=== PATIENT | female | born 1950 | race Caucasian/White ===

== ENCOUNTER → 2018-04-20 07:50 | Outpatient (CLI) | payer MEDICARE, OTHER, SELFPAY ==
--- NOTE | 2018-04-20 | DI.MRI.S_ITS ---
PROCEDURE: MR LUMBAR SPINE WO CON INDICATIONS: SPINAL STENOSIS OF LUMBAR REGION TECHNIQUE: Noncontrast sagittal T1 spin echo and T2 fast echo, sagittal STIR, axial T1 and T2 fast spin echo through the lumbar spine. In cases with scoliosis, additional coronal T2 fast spin echo may be performed. COMPARISON: [facility], MR, L-SPINE WITHOUT CONTRAST, 10/19/2011, 18:33. [facility], MR, L-SPINE WITHOUT CONTRAST, 12/08/2016, 7:06. FINDINGS: Image quality: Excellent. Alignment and Curvature: There is grade 1 retrolisthesis of L4 on L5. Bone Marrow: Marrow is of normal overall signal. There is chronic moderate loss of vertebral body height at L5 without marrow edema, which may be congenital. Spinal Cord: Conus medullaris terminates at the L1-L2 level. Visualized cord demonstrates normal signal and size. Paraspinous Soft Tissues: No paravertebral masses. T12-L1: Preserved disc height and disc signal. There is mild posterior disc bulge. The central canal is patent. No foraminal stenosis. L1-L2: Preserved disc height and disc signal. There is broad posterior disc bulge and disc osteophyte complex. Mild bilateral facet arthropathy and hypertrophy of ligamentum flavum. The central canal is mildly narrowed, which is increased compared to the last exam. No foraminal stenosis. L2-L3: Mild loss of disc height and moderate disc desiccation. There is broad posterior disc bulge and disc osteophyte complex. Moderate bilateral facet arthropathy and severe hypertrophy of ligamentum flavum. The central canal is severely narrowed. Moderate right and mild left foraminal stenosis. There is no significant change from the last exam. L3-L4: Mild loss of disc height and moderate disc desiccation. There is broad posterior disc bulge and disc osteophyte complex. Moderate bilateral facet arthropathy and severe hypertrophy of ligamentum flavum. The central canal is severely narrowed but unchanged from the last exam. Moderate bilateral foraminal stenosis, slightly increased. L4-L5: Moderate loss of disc height and disc desiccation. There is diffuse posterior disc bulge and disc osteophyte complex. Moderate left and mild right facet arthropathy. Moderate hypertrophy of ligamentum flavum. The central canal is severely narrowed but unchanged from the last exam. Severe left and moderate right foraminal stenosis, unchanged. L5-S1: Preserved disc height. Mild disc desiccation. There is mild diffuse posterior disc bulge. Moderate bilateral facet arthropathy. The central canal is patent. Mild bilateral foraminal stenosis, unchanged. IMPRESSION: 1. Multilevel degenerative disc disease and facet arthropathy as described. 2. Severe central canal stenosis at L2-L3, L3-L4 and L4-L5. 3. Multilevel foraminal stenosis as described. Dictated by: Stephie Valdez M.D. on 04/20/2018 at 8:43 Approved by: Stephie Valdez M.D. on 04/20/2018 at 9:04
== END ==
PROVIDERS: Family Provider Family Medicine; PCP Family Medicine; Visit Provider Physical Medicine & Rehabilitation Pain Medicine
DX: M48.061 Spinal stenosis, lumbar region without neurogenic claudication (principal); M51.36 Other intervertebral disc degeneration, lumbar region; M47.816 Spondylosis without myelopathy or radiculopathy, lumbar region
CPT/HCPCS: 72148

== ENCOUNTER → 2018-08-01 12:29 | Outpatient (CLI) | payer MEDICARE, OTHER, SELFPAY ==
--- NOTE | 2018-08-01 | DI.ECHO.S_ITS ---
[facility] +---------+ : : [address] [place] : : : : [id number] : : : : Phone: [phone] Echocardiogram Report + + :Name: WHITLEY MOISE Study Date: 08/01/2018 Height: 65 in : :[facility] Exam Location: [facility] Weight: 284 lb : : Gender: Female BSA: 2.3 m2 : :: 1950 Age: 68 yrs BP: 130/80 mmHg: :Reason For Study: SOB/ MERRITT : :Ordering Physician: Dr. Jerome : :[place] Performed By: iJll Page : + + Interpretation Summary Left ventricular systolic function is normal with the ejection fraction visually estimated to be 65-70% without focal wall motion abnormalities although there is a mild dyssynchronous contraction pattern, consistent with a conduction abnormality. Left ventricular wall thickness is borderline increased. The right ventricle is normal in size and function. The right ventricular systolic pressure is estimated to be at least 37 mmHg based on an estimated right atrial pressure of 3 mm Hg. Both atria are normal in size. There is mild aortic regurgitation but no other significant valvular heart disease. The ascending aorta is mildly enlarged. The patient was in sinus tachycardia with heart rates between 100-113 bpm during the exam. Procedure: A two-dimensional transthoracic echocardiogram with color flow and Doppler was performed. The study quality was technically adequate. There is no prior echocardiogram noted for this patient. The patient was in sinus tachycardia with heart rates between 100-113 bpm during the exam. The patient had occasional PVCs during the exam. Left Ventricle: The left ventricle is grossly normal size. Left ventricular wall thickness is borderline increased. Left ventricular systolic function is normal without focal wall motion abnormalities. The ejection fraction is estimated to be 65-70%. There is a mild dyssynchronous contraction pattern, consistent with a conduction abnormality. Diastolic function could not be accurately assessed due to tachycardia. Right Ventricle: The right ventricle is normal in size and function. Atria: Both atria are normal in size. There is no Doppler evidence for an interatrial shunt. Mitral Valve: The mitral valve leaflets are slightly calcified. There is trace mitral regurgitation. Aortic Valve: The aortic valve is slightly calcified. The aortic valve opens well. There is mild aortic regurgitation. Tricuspid Valve: The tricuspid valve is normal in structure and function. There is trace tricuspid regurgitation. The right ventricular systolic pressure is estimated to be at least 37 mmHg based on an estimated right atrial pressure of 3 mm Hg. Pulmonic Valve: The pulmonic valve is not well visualized. There is a trace or physiologic amount of pulmonic regurgitation. There is no other significant valvular heart disease. Great Vessels: The aortic root is normal size. The ascending aorta is mildly enlarged. The pulmonary artery is not well visualized, but is probably normal size. The IVC is of normal diameter and collapses greater than 50% with a sniff. This suggests a low right atrial pressure of 3 mm Hg. Pericardium/ Pleura There is no pericardial effusion. There is no pleural effusion. MMode/2D Measurements & Calculations LVIDd: 4.0 cm LVOT diam: 2.1 cm LVIDs: 2.3 cm Ao root diam: 3.1 cm FS: 43.0 % asc Aorta Diam: 3.7 cm IVSd: 1.2 cm Ao Arch Diam (distal): 2.8 cm LVPWd: 0.84 cm LV shultz. diameter/BSA (cm/m^2): 1.8 LV sys. diameter/BSA (cm/m^2): 1.00 LA A2 area: 19.9 cm2 RA long axis: 5.0 cm LA A4 area: 20.3 cm2 RA area: 16.7 cm2 LA length (vol): 5.8 cm RA vol: 47.6 ml LA vol: 59.1 ml RA : 20.7 ml/m2 LA vol index: 25.7 ml/m2 IVC diam: 1.8 cm RVD1 (basal): 3.7 cm TAPSE: 2.0 cm Doppler Measurements & Calculations Ao V2 max: 176.1 cm/sec LVOT Max Jerad: 110.3 cm/sec Ao V2 mean: 112.8 cm/sec LV V1 max P.9 mmHg Ao max P.4 mmHg LV V1 VTI: 17.5 cm Ao mean P.9 mmHg CLEMENTE(I,D): 2.4 cm2 Ao V2 VTI: 24.2 cm CLEMENTE(V,D): 2.1 cm2 sev ratio: 0.72 CLEMENTE indexed to BSA (cm^2/m^2): 1.0 AI P1/2t: 402.0 msec AI dec slope: 309.4 cm/sec2 MV E max jerad: 63.2 cm/sec TR max jerad: 289.9 cm/sec MV A max jerad: 89.1 cm/sec TR max P.6 mmHg MV E/A: 0.71 PA V2 max: 107.0 cm/sec MV dec time: 0.13 sec PA V2 mean: 72.4 cm/sec MV P1/2t: 39.1 msec PA mean P.4 mmHg PA Accel Time: 0.07 sec MV P1/2t max jerad: 63.3 cm/sec MVA(P1/2t): 5.6 cm2 Reading Physician:JIM
--- NOTE | 2018-08-01 | DI.RAD.S_ITS ---
PROCEDURE: XR CHEST 2V INDICATIONS: SOB/Dyspnea on exertion TECHNIQUE: 2 views of the chest were acquired. COMPARISON: None. FINDINGS: Surgical changes and devices: None. Lungs and pleura: No pleural effusions or pneumothorax. No acute consolidation. Scattered subsegmental scarring/atelectasis Mediastinum: Mediastinal contours are normal. Heart size is normal. Bones and chest wall: No suspicious bony abnormalities. Soft tissues appear unremarkable. IMPRESSION: Scattered atelectasis. No acute consolidation. Dictated by: Jose Jurado M.D. on 08/01/2018 at 14:38 Approved by: Jose Jurado M.D. on 08/01/2018 at 14:39
== END ==
PROVIDERS: PCP Family Medicine; Visit Provider Family Medicine
DX: I35.1 Nonrheumatic aortic (valve) insufficiency (principal); J98.11 Atelectasis; R06.02 Shortness of breath; R06.09 Other forms of dyspnea; R00.0 Tachycardia, unspecified
CPT/HCPCS: 71046; 93306

== ENCOUNTER → 2019-01-22 16:02 | Outpatient (CLI) | payer MEDICARE, OTHER, SELFPAY ==
--- NOTE | 2019-01-22 | DI.MRI.S_ITS ---
PROCEDURE: MR CERVICAL SPINE WO CON INDICATIONS: Bilateral hand and arm pain TECHNIQUE: Noncontrast sagittal T1 spin echo and T2 fast spin echo, sagittal STIR, foraminal oblique sagittal T2 fast spin echo, and axial gradient echo or T2 fast spin echo through the cervical spine. COMPARISON: None. FINDINGS: Image quality: This examination is limited by involuntary motion artifact. Alignment and Curvature: There is normal bony alignment. Bone Marrow: Marrow demonstrates normal overall signal. Spinal Cord: Visualized spinal cord has normal size and signal. No cerebellar tonsillar herniation. Paraspinous Soft Tissues: No paravertebral masses. Prevertebral soft tissues are normal in thickness. C2-C3: The disc height is well-preserved. Loss of disc signal is seen at this level. A mild degree of generalized disc osteophyte complex is seen. There is mild right-sided and moderate left-sided facet hypertrophy seen. There is moderate left-sided and mild right-sided neural foraminal narrowing seen. Mild central canal narrowing is seen. C3-C4: The disc height is well-preserved. Loss of disc signal is seen at this level. A mild degree of generalized disc osteophyte complex is seen. Moderate facet joint hypertrophy is seen. There is moderate to severe bilateral neural foraminal narrowing seen. [id number] central canal narrowing is seen. C4-C5: The disc height is well-preserved. Loss of disc signal is seen at this level. A mild degree of generalized disc osteophyte complex is seen. There is moderate to prominent right-sided and mild left-sided facet hypertrophy seen. There is moderate to severe right-sided and moderate left-sided neural foraminal narrowing seen. Mild central canal narrowing is seen. C5-C6: The disc height is well-preserved. Loss of disc signal is seen at this level. Moderate generalized disc osteophyte complex is seen. Moderate facet joint hypertrophy is seen. There is moderate to severe bilateral neural foraminal narrowing seen. Moderate central canal narrowing is seen. C6-C7: The disc height is well-preserved. Loss of disc signal is seen at this level. A mild degree of generalized disc osteophyte complex is seen. There is at least moderate bilateral neural foraminal narrowing seen. Zatr-[id number] central canal narrowing is seen. C7-T1: Moderate loss of disc height is seen. Loss of disc signal is seen. Mild to moderate disc osteophyte complex is seen. Minimal to mild bilateral neural foraminal narrowing is seen. The central canal is widely patent. IMPRESSION: Multiple levels of cervical spine degenerative change are seen, which are most prominent at C5-C6, where there is moderate to severe bilateral neural foraminal narrowing and moderate central canal narrowing. Dictated by: Rubin Pappas M.D. on 01/22/2019 at 17:52 Approved by: Rubin Pappas M.D. on 01/22/2019 at 17:56
== END ==
PROVIDERS: Family Provider Family Medicine; PCP Family Medicine; Visit Provider Physical Medicine & Rehabilitation Pain Medicine
DX: M54.2 Cervicalgia (principal); M79.602 Pain in left arm; M79.601 Pain in right arm; M79.642 Pain in left hand; M79.641 Pain in right hand; M47.812 Spondylosis without myelopathy or radiculopathy, cervical region; M48.02 Spinal stenosis, cervical region
CPT/HCPCS: 72141

== ENCOUNTER 2021-05-01 17:05 | Emergency (ER) | payer MEDICARE, OTHER, SELFPAY ==
[2021-05-01 17:27] VITALS: BP 154/91; PULSE 69; RESP 18; TEMP 36.8; O2SAT 98; BMI 48.1
[2021-05-01 18:02] LABS: COVID19 -Nasal RAPID POSITIVE (Negative)
--- NOTE | 2021-05-01 18:11 | PC.NURSE ---
Nasal congestion sinus symptoms and cough x 5 days
--- NOTE | 2021-05-01 18:41 | ED.RECABL ---
HPI - Recheck/Abnormal Lab/Rx General Chief Complaint: Recheck/Abnormal Lab/Rx Stated Complaint: Covid exposure, wants test Time Seen by Provider: 05/01/21 17:19 Source: patient Mode of arrival: Ambulatory History of Present Illness HPI narrative: Patient is a 70-year-old female currently COVID vaccinated his history of myasthenia gravis, type 2 diabetes, hypothyroid, hypertension presenting today with symptoms concerning for COVID. She has had head congestion ongoing for the last 5-6 days. She is currently in a room with her friend who is also COVID positive. No difficulty breathing. Oxygen level is well above normal limits. Related Data Home Medications Medication Instructions Recorded Confirmed [RED YEAST RICE] 1 tab PO QDAY #0 06/28/16 calcium carbonate 500 mg calcium 1 tab PO #0 tab 06/28/16 (1,250 mg) tablet cholecalciferol (vitamin D3) 25 1,000 unit PO QDAY #0 tab 06/28/16 mcg (1,000 unit) tablet (Vitamin D3) glipizide 5 mg tablet 0.5 - 1 tab PO TIDAC #0 06/28/16 lecithin, soy 400 mg capsule 400 mg PO QDAY #0 06/28/16 levothyroxine 125 mcg tablet 125 mcg PO QDAY #0 tab 06/28/16 (Synthroid) metformin 500 mg tablet,extended 500 mg PO BID #0 06/28/16 release 24 hr (Glucophage XR) oxybutynin chloride 5 mg tablet 5 mg PO TID #0 06/28/16 venlafaxine 150 mg 150 mg PO QDAY #0 06/28/16 capsule,extended release 24 hr (Effexor XR) vitamin B complex (B 1 tab PO QDAY #0 tab 06/28/16 Complex-Vitamin B12) ibuprofen 200 mg tablet 600 mg PO BIDP PRN #0 07/12/16 losartan 50 mg-hydrochlorothiazide 1 tab PO BID #0 01/10/17 12.5 mg tablet Previous Rx's Medication Instructions Recorded aspirin 81 mg tablet,delayed 81 mg PO BID #60 tab 01/25/17 release hydromorphone 2 mg tablet 1 tab PO Q4HP PRN #20 tab 01/25/17 hydroxyzine pamoate 25 mg capsule 25 - 50 mg PO Q4HP PRN #60 cap 01/25/17 oxycodone 5 mg tablet 5 - 10 mg PO Q3HP PRN #60 tab 01/25/17 Allergies Allergy/AdvReac Type Severity Reaction Status Date / Time No Known Drug Allergies Allergy Verified 05/01/21 18:09 Review of Systems Review of Systems Narrative: GENERAL: Denies chills, fatigue, malaise, fever, sweats, travel HEENT: Denies sinus pain, ear pain, sore throat, difficulty swallowing, neck pain RESPIRATORY: See HPI CARDIOVASCULAR: Denies chest pain, palpitations, orthopnea, edema GASTROINTESTINAL: Denies nausea, vomiting, abdominal pain, diarrhea, constipation, melena. : Denies dysuria, frequency, incontinence, hematuria, urinary retention, flank pain. MUSCULOSKELETAL: Denies weakness, joint pain, or bony pain SKIN: No rash, no erythema, no pruritus NEUROLOGIC: Denies weakness, dizziness, headache, numbness, change in speech, confusion PSYCHIATRIC: No concerning psychosocial issues. 12 point review of systems is negative except for those stated above and HPI Patient History Social History Smoking Status: Never smoker Smoking Status: Never smoker alcohol intake frequency: other Substance Use Type: does not use Exam Initial Vital Signs Initial Vital Signs: Vital Signs Temperature 98.2 F 05/01/21 17:27 Pulse Rate 69 05/01/21 17:27 Respiratory Rate 18 05/01/21 17:27 Blood Pressure 154/91 H 05/01/21 17:27 Pulse Oximetry 98 05/01/21 17:27 GENERAL: Alert 70-year-old female appears in no acute distress HEENT: Head atraumatic,EOMI, pupils reactive, face symmetric, moist mucous membranes CARDIOVASCULAR: Regular rate and rhythm without murmurs, rubs or gallops. RESPIRATORY: Breath sounds equal bilaterally, no wheezes rales or rhonchi. ABDOMEN: Soft, nontender. Normoactive bowel sounds all 4 quadrants. No guarding or rebound. EXTREMITIES: Normal range of motion, no clubbing or edema. Neurovascularly intact NEUROLOGICAL: Alert and oriented x4.Normal gait and speech. SKIN: Warm, dry, no laceration, no petechiae, no rashes or lesions. Course Orders Ordered: ED Orders 05/01/21 17:25 COVID19 -Nasal swab/Pre-Proc Stat Vital Signs Vital signs: Vital Signs - 8 hr 05/01/21 17:27 Temperature 98.2 F Pulse Rate 69 Respiratory Rate 18 Blood Pressure 154/91 H Pulse Oximetry 98 MDM - Recheck/Abnormal Lab/Rx Lab Data Labs: Lab Results 05/01/21 Range/Units 17:25 SARS-CoV-2 (PCR) Positive H (Negative) MDM Narrative Medical decision making narrative: Discussed with patient monitoring COVID at home. She is accident aided so I do not suspect a severe infection however she does have multiple risk factors and comorbidities. Patient understands is what to do at home and when to return to the emergency department. Discharge Plan Departure Patient Disposition: Home Clinical Impression: COVID-19 Instructions: DI for COVID-19 (Suspected or Confirmed ) Activity Restrictions/Additional Instructions: * if you have not yet been vaccinated is still recommended and encouraged that you do so once your infection has passed At home: -Monitor oxygen with pulse oximeter. -Wash hands frequently. -Stay isolated at home please follow the isolation instructions below. -Increase fluid intake. -you may take Tylenol as directed if needed for pain or fever Emergency warning signs for COVID-19: Return to ER if these are present - Difficulty breathing or shortness of breath, oxygen less than 90% - Persistent pain or pressure in the chest - New confusion or inability to arouse - Bluish lips or face CDC Guidelines for home isolation: - Stay away from others - Limit contact with pets and animals: If you must care for a pet, wash your hands before and after interacting with them - Wear a mask while in public all places - Cover your mouth and nose with a tissue when you cough or sneeze. Dispose of tissues in a lined trash can and wash your hands immediately with soap and water for at least 20 seconds. If soap and water are not available, clean hands with alcohol-based hand instrument assembler that contains at least 60% alcohol. - Clean your hands often with soap and water for at least 20 seconds - Avoid touching your eyes, nose and mouth with unwashed hands - Do not share dishes, drinking glasses, cups, eating utensils, towels, or bedding with other people in your home. After using these items, wash them thoroughly with soap and water or put in the grease machine worker. - Clean high-touch surfaces in your isolation area (?sick room? and bathroom) every day; let a caregiver clean and disinfect high-touch surfaces in other areas of the home. Clean the area or item with soap and water or another detergent if it is dirty. Then, use a household disinfectant. Prescriptions: No Action metformin [Glucophage XR] 500 MG tablet extended release 24 hr 500 mg PO BID Qty: 0 RF: 0 levothyroxine [Synthroid] 125 MCG tablet 125 mcg PO QDAY Qty: 0 RF: 0 glipizide 5 MG tablet 0.5 - 1 tab PO TIDAC Qty: 0 RF: 0 venlafaxine [Effexor XR] 150 MG capsule,extended release 24hr 150 mg PO QDAY Qty: 0 RF: 0 oxybutynin chloride 5 MG tablet 5 mg PO TID Qty: 0 RF: 0 vitamin B complex [B Complex-Vitamin B12] 1 EACH tablet 1 tab PO QDAY Qty: 0 RF: 0 cholecalciferol (vitamin D3) [Vitamin D3] 1,000 UNIT tablet 1,000 unit PO QDAY Qty: 0 RF: 0 lecithin, soy 400 MG capsule 400 mg PO QDAY Qty: 0 RF: 0 calcium carbonate 500 MG tablet 1 tab PO Qty: 0 RF: 0 [RED YEAST RICE] 1 tab PO QDAY Qty: 0 RF: 0 ibuprofen 200 MG tablet 600 mg PO BIDP PRNQty: 0 RF: 0 losartan-hydrochlorothiazide 50 MG/12.5 MG tablet 1 tab PO BID Qty: 0 RF: 0 aspirin 81 MG tablet,delayed release (DR/EC) 81 mg PO BID Qty: 60 RF: 1 hydromorphone 2 MG tablet 1 tab PO Q4HP PRNQty: 20 RF: 0 hydroxyzine pamoate 25 MG capsule 25 - 50 mg PO Q4HP PRNQty: 60 RF: 1 oxycodone 5 MG tablet 5 - 10 mg PO Q3HP PRNQty: 60 RF: 0
== END 2021-05-01 20:03 | disposition home or self-care (01) ==
LOC: ED 19:04
PROVIDERS: Emergency Medicine; Emergency Provider Emergency Medicine
DX: U07.1 COVID-19 (principal)
CPT/HCPCS: 87635; 99281; 99282; C9803

== ENCOUNTER 2021-05-06 22:33 | Observation (INO) | payer MEDICARE, OTHER, SELFPAY ==
[2021-05-06 22:46] VITALS: BP 109/60; PULSE 71; RESP 20; TEMP 36.6; O2SAT 98; BMI 48.2
--- NOTE | 2021-05-06 22:58 | DI.RAD.S_ITS ---
PROCEDURE: XR CHEST 1V INDICATIONS: covid TECHNIQUE: One view of the chest was acquired. COMPARISON: [facility], CR, XR CHEST 2V, 08/01/2018, 12:34. FINDINGS: Surgical changes and devices: None. Lungs and pleura: Mild infiltrates bilaterally compatible with pneumonia. No pleural effusions or pneumothorax. Mediastinum: Mediastinal contours appear normal. Heart size is normal. Bones and chest wall: No suspicious bony lesions. Overlying soft tissues appear unremarkable. IMPRESSION: Mild infiltrates bilaterally compatible with pneumonia. No significant discrepancy with the unstacker radiology preliminary report. Dictated by: Stephie Valdez M.D. on 05/07/2021 at 7:22 Approved by: Stephie Valdez M.D. on 05/07/2021 at 7:23
[2021-05-06 23:17] LABS: Add Manual Diff / Slide Review NO; Basophils Absolute Auto 0 /uL (0-100); Basophils Percent Auto 0.2 % (0-2); Eosinophils Absolute Auto 0 /uL (0-450); Eosinophils Percent Auto 0.4 % (2-4); Lymphocytes Absolute Auto 200 /uL (1100-4500); Lymphocytes Percent Auto 3.7 % (25-40); Mean Corpuscular HGB Conc 34.4 % (30-36); Mean Corpuscular Hemoglobin 29.6 PG (26-34); Mean Corpuscular Volume 86.1 fL (80-100); Monocytes Absolute Auto 500 /uL (0-900); Neutrophils Absolute Auto 5200 /uL (1500-7000); Neutrophils Percent Auto 86.7 % (50-75); Platelet Count 209 X10^3/uL (150-400); Red Blood Cell Count 3.72 X10^6/uL (4.0-5.2); Red Cell Distribution Width 15.8 % (11.6-14.8)
[2021-05-06 23:33] VITALS: PULSE 73; RESP 24; O2SAT 100
[2021-05-06 23:33] LABS: D Dimer 842 ng/mL (<230)
[2021-05-06 23:34] LABS: Alanine Aminotransferase 36 IU/L (<35); Albumin 3.3 g/dL (3.5-5.0); Albumin Globulin Ratio 1.1 (1.0-2.8); Alkaline Phosphatase 56 U/L (38-126); Aspartate Aminotransferase 82 IU/L (14-36); BUN Creatinine Ratio 17.5 (6-22); Bilirubin Total 0.8 mg/dL (0.2-1.3); Blood Urea Nitrogen 28 mg/dL (7-17); Calcium 8.2 mg/dL (8.4-10.2); Carbon Dioxide 27 mmol/L (22-32); Chloride 94 mmol/L (98-107); Creatine Kinase 556 U/L (30-135); Estimated Glomerular Filt Rate 31.8 mL/min (>60); Glucose 111 mg/dL (80-110); HEMOLYSIS < 15 (0-50); Lactate (Lactic Acid) 3.9 mmol/L (0.7-2.1); Potassium 2.8 mmol/L (3.4-5.1); Sodium 129 mmol/L (137-145); Total Protein 6.3 g/dL (6.3-8.2)
[2021-05-06 23:37] VITALS: BP 101/55; PULSE 71; RESP 20; O2SAT 99
[2021-05-06 23:38] LABS: COVID19 -Nasal RAPID POSITIVE (Negative)
--- NOTE | 2021-05-06 23:45 | ED_ITS ---
HPI - SOB/Dyspnea General Chief Complaint: Shortness of Breath/Dyspnea Stated Complaint: Covid+ SOB Time Seen by Provider: 05/06/21 22:57 Source: patient and family Mode of arrival: EMS Limitations: no limitations History of Present Illness HPI Narrative: Patient is a 70-year-old female who is known COVID positive and vaccinated history of hypertension diabetes type 2 my seen a gravis on immunosuppressants, hyperlipidemia and hypothyroidism. She was diagnosed with COVID on 05/01/2021 her sister was admitted at that time. She has been doing well until today when she has had worsening fatigue. She has been checking her oxygen regularly. She says it goes down to 80 89% she takes some deep breaths it does go up to 94% but then quickly goes back down. She overall just does not feel well. She was actually hypotensive for EMS she received at least 500 cc bolus blood pressure is somewhat in removed. Related Data Home Medications Medication Instructions Recorded Confirmed [RED YEAST RICE] 1 tab PO QDAY #0 06/28/16 calcium carbonate 500 mg calcium 1 tab PO #0 tab 06/28/16 (1,250 mg) tablet cholecalciferol (vitamin D3) 25 1,000 unit PO QDAY #0 tab 06/28/16 mcg (1,000 unit) tablet (Vitamin D3) glipizide 5 mg tablet 5 tab PO TIDAC #0 06/28/16 05/07/21 lecithin, soy 400 mg capsule 400 mg PO QDAY #0 06/28/16 05/07/21 levothyroxine 125 mcg tablet 125 mcg PO QDAY #0 tab 06/28/16 05/07/21 (Synthroid) metformin 500 mg tablet,extended 500 mg PO BID #0 06/28/16 05/07/21 release 24 hr (Glucophage XR) oxybutynin chloride 5 mg tablet 5 mg PO TID #0 06/28/16 venlafaxine 150 mg 150 mg PO Q OTHER DAY #0 06/28/16 05/07/21 capsule,extended release 24 hr (Effexor XR) vitamin B complex (B 1 tab PO QDAY #0 tab 06/28/16 05/07/21 Complex-Vitamin B12) ibuprofen 200 mg tablet 600 mg PO BIDP PRN #0 07/12/16 azathioprine 75 mg tablet 150 mg PO DAILY 05/07/21 05/07/21 hydrochlorothiazide 25 mg tablet 25 mg PO DAILY PRN 05/07/21 05/07/21 lactobacillus combination no.8 3 1 cell PO 2XW 05/07/21 05/07/21 billion cell capsule losartan 50 mg tablet 50 mg PO BID 05/07/21 05/07/21 metoprolol tartrate 25 mg tablet 25 mg PO DAILY 05/07/21 05/07/21 multivitamin with minerals (Daily 1 tab PO 2XW 05/07/21 05/07/21 Multivitamin-Minerals) potassium chloride 8 mEq 8 meq PO DAILY 05/07/21 05/07/21 capsule,extended release prednisone 10 mg tablet 10 mg PO DAILY PRN 05/07/21 05/07/21 pyridostigmine bromide 30 mg tablet 15 mg PO BID 05/07/21 05/07/21 Previous Rx's Medication Instructions Recorded aspirin 81 mg tablet,delayed 81 mg PO BID #60 tab 01/25/17 release hydromorphone 2 mg tablet 1 tab PO Q4HP PRN #20 tab 01/25/17 hydroxyzine pamoate 25 mg capsule 25 - 50 mg PO Q4HP PRN #60 cap 01/25/17 oxycodone 5 mg tablet 5 - 10 mg PO Q3HP PRN #60 tab 01/25/17 Allergies Allergy/AdvReac Type Severity Reaction Status Date / Time No Known Drug Allergies Allergy Verified 05/01/21 18:09 Review of Systems Review of Systems ROS Unobtainable: All systems reviewed & are unremarkable except as noted in HPI and below Constitutional Constitutional: Reports chills, Reports fatigue and Reports fever(s) ENT Ears, Nose, Mouth, and Throat: Denies dizziness and Denies sinus pain Cardiovascular Cardiovascular: Denies chest pain and Denies irregular heart rhythm Respiratory Respiratory: Reports as per HPI Gastrointestinal Gastrointestinal: Denies abdominal pain, Denies nausea and Denies vomiting Musculoskeletal Musculoskeletal: Denies back pain and Reports myalgias Integumentary/Breasts Skin/Breast: Denies rash and Denies sores Neurologic Neurologic: Denies dizziness Endocrine Endocrine: Reports fatigue Patient History Medical History Diabetes type 2, controlled Essential hypertension HLD (hyperlipidemia) Hypothyroidism Morbid obesity with BMI of 45.0-49.9, adult Myasthenia gravis Surgical History S/P total knee arthroplasty Family History Mother Diabetes mellitus Father Testicular cancer Social History household members: none Smoking Status: Never smoker Smoking Status: Never smoker alcohol intake frequency: other Substance Use Type: does not use Exam Initial Vital Signs Initial Vital Signs: Vital Signs Temperature 97.8 F 05/06/21 22:46 Pulse Rate 71 05/06/21 22:46 Respiratory Rate 20 05/06/21 22:46 Blood Pressure 109/60 05/06/21 22:46 Pulse Oximetry 98 05/06/21 22:46 GENERAL: Alert 70-year-old female appears to not feel well and in no acute distress. HEENT: Head atraumatic,EOMI, pupils reactive, face symmetric, moist mucous membranes CARDIOVASCULAR: Regular rate and rhythm without murmurs, rubs or gallops. RESPIRATORY: Coarse breath sounds bilateral bases speaks in full sentences without difficulty on 4 L nasal cannula ABDOMEN: Soft, nontender. Normoactive bowel sounds all 4 quadrants. No guarding or rebound. EXTREMITIES: Normal range of motion, no clubbing or edema. Neurovascularly intact NEUROLOGICAL: Alert and oriented x4.Normal gait and speech. SKIN: Warm, dry, no laceration, no petechiae, no rashes or lesions. Course Orders Ordered: ED Orders 05/06/21 22:58 XR chest 1V Stat EKG-12 Lead Stat 05/06/21 23:00 COVID19 -Nasal swab/Pre-Proc Stat 05/06/21 23:05 Blood Culture Stat C-Reactive Protein Quant Stat Complete Blood Count AUTO DIFF Stat Comprehensive Metabolic Panel Stat D Dimer Stat Ferritin Stat Lactate (Lactic Acid) Stat Lactate Dehydrogenase Stat NT-proBNP (BNP-Adult 18+) Stat Procalcitonin Stat Troponin & CK Cardiac Panel Stat Acetaminophen (Acetaminophen 325 Mg Tablet) 650 mg PO Q6HR PRN PRN Reason: Fever/Mild Pain (1-3) Azathioprine (Azathioprine 50 Mg Tablet) 150 mg PO DAILY MINE Azithromycin (Azithromycin 250 Mg Tablet) 500 mg PO DAILY MINE Dexamethasone (Dexamethasone 10 Mg/Ml Vial) 6 mg IV DAILY [facility]INE Dextrose (Dextrose 50 % In Water 25 Gm/50 Ml Syringe) 25 gm IV PRN PRN PRN Reason: Hypoglycemia Enoxaparin Sodium (Enoxaparin 40 Mg/0.4 Ml Syringe) 40 mg SUBCUT DAILY [facility] Sodium Chloride (Normal Saline 0.9%) 1,000 mls @ 150 mls/hr IV CONT [facility] Stop: 05/07/21 06:24 Last Admin: 05/07/21 03:08 Dose: Not Given Documented by: CYNTHIA Remdesivir 100 mg/ Sodium (Chloride) 250 mls @ 250 mls/hr IV DAILY [facility] Stop: 05/10/21 01:11 Insulin Human Lispro (Insulin Lispro 100 Unit/Ml 3ml Vial) 0 unit SUBCUT ACHS [facility]; Protocol Levothyroxine Sodium (Levothyroxine 125 Mcg Tablet) 125 mcg PO QACBREAK [facility] Last Admin: 05/07/21 02:37 Dose: Not Given Documented by: CYNTHIA Losartan Potassium (Losartan 50 Mg Tablet) 50 mg PO BID [facility] Metoprolol Tartrate (Metoprolol Ir 25 Mg Tablet) 25 mg PO DAILY [facility] Naloxone HCl (Naloxone 0.4 Mg/Ml Vial) 0.2 mg IV Q2MIN PRN PRN Reason: Opiate Reversal Pyridostigmine (Taylor 30 Mg Tablet) 15 mg PO BID [facility] Ondansetron HCl (Ondansetron 4 Mg/2 Ml Inj) 4 mg IV Q6HR PRN PRN Reason: Nausea And Vomiting Oxybutynin (Oxybutynin 5 Mg Tablet) 5 mg PO TID [facility] Last Admin: 05/07/21 02:37 Dose: Not Given Documented by: CYNTHIA Venlafaxine HCl (Venlafaxine Er 75 Mg Cap) 150 mg PO DAILY [facility] Last Admin: 05/07/21 02:37 Dose: Not Given Documented by: CYNTHIA Discontinued Medications Azathioprine (Azathioprine 50 Mg Tablet) 50 mg PO DAILY [facility] Dexamethasone (Dexamethasone 10 Mg/Ml Vial) 6 mg IV NOW ONE Stop: 05/06/21 23:57 Last Admin: 05/07/21 00:11 Dose: 6 mg Documented by: NEHA Remdesivir 200 mg/ Sodium (Chloride) 250 mls @ 250 mls/hr IV NOW ONE Stop: 05/06/21 23:57 Last Infusion: 05/07/21 01:56 Dose: 250 mls/hr Documented by: Admin: 05/07/21 00:34 Dose: 250 mls/hr Documented by: NEHA POTASSIUM CHLORIDE IN WATER (Potassium Cl 10 Meq/100 Ml Yola) 10 meq in 100 mls @ 100 mls/hr IV Q1H [facility]INE Stop: 05/07/21 03:44 Last Admin: 05/07/21 03:56 Dose: 100 mls/hr Documented by: Infusion: 05/07/21 03:36 Dose: 100 mls/hr Documented by: Admin: 05/07/21 02:36 Dose: 100 mls/hr Documented by: Infusion: 05/07/21 01:30 Dose: 0 mls/hr Documented by: Admin: 05/07/21 00:11 Dose: 100 mls/hr Documented by: NEHA Sodium Chloride (Normal Saline 0.9%) 1,000 mls @ 1,000 mls/hr IV BOLUS ONE Stop: 05/07/21 01:02 Last Infusion: 05/07/21 01:56 Dose: 1,000 mls/hr Documented by: Admin: 05/07/21 00:12 Dose: 1,000 mls/hr Documented by: NEHA Losartan Potassium (Losartan 25 Mg Tablet) 25 mg PO BID MINE Vital Signs Vital signs: Vital Signs - 8 hr 05/06/21 22:46 05/06/21 23:33 05/06/21 23:37 Temperature 97.8 F Pulse Rate 71 73 71 Respiratory Rate 20 24 20 Blood Pressure 109/60 101/55 L Pulse Oximetry 98 100 99 05/07/21 00:00 Temperature Pulse Rate 67 Respiratory Rate 29 H Blood Pressure 83/50 L Pulse Oximetry 98 MDM - SOB/Dyspnea Lab Data Attestation: I reviewed the patient's lab results. Result diagrams: 05/06/21 23:05 05/06/21 23:05 Labs: Lab Results 05/06/21 05/06/21 05/06/21 Range/Units 23:00 23:05 23:05 WBC (4.5-11.0) X10^3/uL RBC (4.0-5.2) X10^6/uL Hgb (12.0-16.0) g/dL Hct (36-46) % MCV (80-100) fL MCH (26-34) PG MCHC (30-36) % RDW (11.6-14.8) % Plt Count (150-400) X10^3/uL Neut % (Auto) (50-75) % Lymph % (Auto) (25-40) % Edgar % (Auto) (3-14) % Eos % (Auto) (2-4) % Baso % (Auto) (0-2) % Neut # (Auto) (9564-0317) /uL Lymph # (Auto) (9800-7723) /uL Edgar # (Auto) (0-900) /uL Eos # (Auto) (0-450) /uL Baso # (Auto) (0-100) /uL D-Dimer 842 H (<230) ng/mL Sodium (137-145) mmol/L Potassium (3.4-5.1) mmol/L Chloride (98-107) mmol/L Carbon Dioxide (22-32) mmol/L BUN (7-17) mg/dL Creatinine (0.52-1.04) mg/dL Estimated GFR (>60) mL/min BUN/Creatinine Ratio (6-22) Glucose (80-110) mg/dL Hemoglobin A1c (4.0-6.0) % Lactate (0.7-2.1) mmol/L Calcium (8.4-10.2) mg/dL Ferritin (11-264) ng/mL Total Bilirubin (0.2-1.3) mg/dL AST (14-36) IU/L ALT (<35) IU/L Alkaline Phosphatase (38-126) U/L Lactate Dehydrogenase (313-618) U/L Total Creatine Kinase (30-135) U/L CK-MB (CK-2) (<2.37) ng/mL CK-MB (CK-2) Rel Index (1.5-5.0) % Troponin I (0.01-0.034) ng/mL C-Reactive Protein (<1.0) mg/dL NT-Pro-B Natriuret Pep (<125) pg/mL Total Protein (6.3-8.2) g/dL Albumin (3.5-5.0) g/dL Globulin (1.7-4.1) g/dL Albumin/Globulin Ratio (1.0-2.8) Procalcitonin 0.31 (<0.5) ng/mL SARS-CoV-2 (PCR) Positive H (Negative) 05/06/21 05/06/21 05/06/21 Range/Units 23:05 23:05 23:05 WBC 6.0 (4.5-11.0) X10^3/uL RBC 3.72 L (4.0-5.2) X10^6/uL Hgb 11.0 L (12.0-16.0) g/dL Hct 32.0 L (36-46) % MCV 86.1 (80-100) fL MCH 29.6 (26-34) PG MCHC 34.4 (30-36) % RDW 15.8 H (11.6-14.8) % Plt Count 209 (150-400) X10^3/uL Neut % (Auto) 86.7 H (50-75) % Lymph % (Auto) 3.7 L (25-40) % Edgar % (Auto) 9.0 (3-14) % Eos % (Auto) 0.4 L (2-4) % Baso % (Auto) 0.2 (0-2) % Neut # (Auto) 5200 (7173-8393) /uL Lymph # (Auto) 200 L (0637-1580) /uL Edgar # (Auto) 500 (0-900) /uL Eos # (Auto) 0 (0-450) /uL Baso # (Auto) 0 (0-100) /uL D-Dimer (<230) ng/mL Sodium 129 L (137-145) mmol/L Potassium 2.8 L (3.4-5.1) mmol/L Chloride 94 L (98-107) mmol/L Carbon Dioxide 27 (22-32) mmol/L BUN 28 H (7-17) mg/dL Creatinine 1.60 H (0.52-1.04) mg/dL Estimated GFR 31.8 L (>60) mL/min BUN/Creatinine Ratio 17.5 (6-22) Glucose 111 H (80-110) mg/dL Hemoglobin A1c (4.0-6.0) % Lactate 3.9 H (0.7-2.1) mmol/L Calcium 8.2 L (8.4-10.2) mg/dL Ferritin 742 H (11-264) ng/mL Total Bilirubin 0.8 (0.2-1.3) mg/dL AST 82 H (14-36) IU/L ALT 36 H (<35) IU/L Alkaline Phosphatase 56 (38-126) U/L Lactate Dehydrogenase 781 H (313-618) U/L Total Creatine Kinase 556 H (30-135) U/L CK-MB (CK-2) 1.51 (<2.37) ng/mL CK-MB (CK-2) Rel Index 0.3 L (1.5-5.0) % Troponin I < 0.012 (0.01-0.034) ng/mL C-Reactive Protein 6.0 H (<1.0) mg/dL NT-Pro-B Natriuret Pep 165 H (<125) pg/mL Total Protein 6.3 (6.3-8.2) g/dL Albumin 3.3 L (3.5-5.0) g/dL Globulin 3.0 (1.7-4.1) g/dL Albumin/Globulin Ratio 1.1 (1.0-2.8) Procalcitonin (<0.5) ng/mL SARS-CoV-2 (PCR) (Negative) 05/06/21 Range/Units 23:05 WBC (4.5-11.0) X10^3/uL RBC (4.0-5.2) X10^6/uL Hgb (12.0-16.0) g/dL Hct (36-46) % MCV (80-100) fL MCH (26-34) PG MCHC (30-36) % RDW (11.6-14.8) % Plt Count (150-400) X10^3/uL Neut % (Auto) (50-75) % Lymph % (Auto) (25-40) % Edgar % (Auto) (3-14) % Eos % (Auto) (2-4) % Baso % (Auto) (0-2) % Neut # (Auto) (9658-1514) /uL Lymph # (Auto) (8216-3620) /uL Edgar # (Auto) (0-900) /uL Eos # (Auto) (0-450) /uL Baso # (Auto) (0-100) /uL D-Dimer (<230) ng/mL Sodium (137-145) mmol/L Potassium (3.4-5.1) mmol/L Chloride (98-107) mmol/L Carbon Dioxide (22-32) mmol/L BUN (7-17) mg/dL Creatinine (0.52-1.04) mg/dL Estimated GFR (>60) mL/min BUN/Creatinine Ratio (6-22) Glucose (80-110) mg/dL Hemoglobin A1c 6.3 H (4.0-6.0) % Lactate (0.7-2.1) mmol/L Calcium (8.4-10.2) mg/dL Ferritin (11-264) ng/mL Total Bilirubin (0.2-1.3) mg/dL AST (14-36) IU/L ALT (<35) IU/L Alkaline Phosphatase (38-126) U/L Lactate Dehydrogenase (313-618) U/L Total Creatine Kinase (30-135) U/L CK-MB (CK-2) (<2.37) ng/mL CK-MB (CK-2) Rel Index (1.5-5.0) % Troponin I (0.01-0.034) ng/mL C-Reactive Protein (<1.0) mg/dL NT-Pro-B Natriuret Pep (<125) pg/mL Total Protein (6.3-8.2) g/dL Albumin (3.5-5.0) g/dL Globulin (1.7-4.1) g/dL Albumin/Globulin Ratio (1.0-2.8) Procalcitonin (<0.5) ng/mL SARS-CoV-2 (PCR) (Negative) Imaging Data Chest x-ray: Radiologist's Impression: Preliminary report: Mild bronchial wall thickening with questionable faint bilateral opacity that is likely secondary given 2 history of COVID-19 ECG Data Attestation: I personally reviewed and interpreted this ECG as follows: Interpretation: Normal sinus rhythm rate 71 MA interval 136 QRS 84 QTC is [address] changes MDM Narrative Medical decision making narrative: The patient is known COVID positive immunocompromised and vaccinated.. She initially was hypotensive blood pressures in the 70s with EMS has improved with fluids here however she is requiring a 2 L could blood pressure decrease his again into the 80s. Lactic acid is elevated at 3.9. Blood pressure improved with a 2 L of fluids. The patient has severe sepsis based on hypotension and known infection. Blood pressure however improved easily with fluids she does not require is vasopressors or central line. She is requiring 4 L of oxygen she is given dexamethasone and remdesivir. She is also found to be slightly hyponatremic with a sodium of 129 the potassium is also low at 2.8. K riders been ordered. D-dimer is likely elevated due to COVID rather than pulmonary embolism. Pao BANG updated patient's symptoms test results in ED to seen evaluated p [place] accepts patient. Discharge Plan Departure Patient Disposition: Admitted As Inpatient Clinical Impression: Pneumonia due to COVID-19 virus Admit Date/Time: 05/07/21 00:03 Admit Provider: Génesis Jurado
[2021-05-06 23:46] LABS: NT-proBNP (BNP-Adult 18+) 165 pg/mL (<125); Troponin I < 0.012 ng/mL (0.01-0.034)
[2021-05-06 23:49] LABS: CKMB % Relative Index 0.3 % (1.5-5.0); Creatine Kinase MB 1.51 ng/mL (<2.37)
[2021-05-06 23:52] LABS: Lactate Dehydrogenase 781 U/L (313-618); Procalcitonin 0.31 ng/mL (<0.5)
[2021-05-07] VITALS (10 sets, daily range): BP systolic 83–132; BP diastolic 50–71; PULSE 67–86; RESP 19–82; TEMP 36.3–37; O2SAT 90–100; BMI 47.5
[2021-05-07 00:09] LABS: Ferritin 742 ng/mL (11-264)
[2021-05-07] MEDS: DEXAMETHASONE 10 MG/ML VIAL 6 MG IV ×2 (00:11→08:20)
[2021-05-07] MEDS: POTASSIUM CHLORIDE IN WATER 10 MEQ/100 ML PIGGYBACK 100 MEQ IV ×4 (00:11→05:02)
[2021-05-07] MEDS: SODIUM CHLORIDE 0.9% 1,000 ML 1000 ML IV (00:12)
[2021-05-07] MEDS: REMDESIVIR 200 MG in SODIUM CHLORIDE 0.9% 210 ML 250 ML IV (00:34)
[2021-05-07 01:11] LABS: Reflexed Lactate in 2 Hours Y
--- NOTE | 2021-05-07 01:12 | P.HP_ITS ---
History of Present Illness History of Present Illness Date Patient Seen: 05/07/21 Time Patient Seen: 00:30 Chief complaint: Covid+ SOB Narrative: Medina Mai is a 70-year-old morbidly obese female with hypertension, diabetes type 2, myasthenia gravis on immunosuppressants, hyperlipidemia and hypothyroidism presents back to the emergency department after being seen 4 days ago and having been tested positive for COVID-19 due to continuing fatigue, sweats with no fever, weakness, lightheadedness and diarrhea for the past several days. She denies actually having a fever she stated it was 97, denies nausea or vomiting, dysuria or numbing and tingling of her upper lower extremities. The patient apparently was exposed to her sister who lives with her and while the patient is vaccinated her sister's not. 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 Chest x-ray was done in the ED however it is not been read. Patient is afebrile, blood pressure 111/65, heart rate 70, respiratory rate 22, oxygen saturation 100% on a 4 L, she weighs 131.5 kg with a BMI of 48. WBC is 6.0 RBC 3.72, hemoglobin and hematocrit are 11.0 in 32 respectively platelet count is 209 she has mild lymphopenia, her D-dimer was elevated 842, sodium 129, potassium 2.8, chloride 94, bicarb 27, creatinine 0.60 which is new for her with 0 GFR of 31.8 glucose is 110, lactate 3.9, calcium 8.2, ferritin 742, AST 82, ALT 36, lactate dehydrogenase is 781, total CK is 956, CK-MB is 3%, troponin is within normal limits, C-reactive protein is 6.0, proBNP is 165 essentially normal, albumin is 2.3, and COVID-19 PCR repeated over 4 days continues to be positive Patient History Medical History Diabetes type 2, controlled Essential hypertension HLD (hyperlipidemia) Hypothyroidism Morbid obesity with BMI of 45.0-49.9, adult Myasthenia gravis Surgical History S/P total knee arthroplasty Family & Social History Family History Mother Diabetes mellitus Father Testicular cancer Safety & Behavioral: Feels Safe in Current Yes Environment Been Physically Hurt or No Threatened By a Person Tobacco & Substance use: Smoking Status Never smoker alcohol intake frequency denies Substance Use Type does not use Meds Home Medications and Allergies Home Medications Medication Instructions Recorded Confirmed Type [RED YEAST RICE] 1 tab PO QDAY #0 06/28/16 History calcium carbonate 500 mg calcium 1 tab PO #0 tab 06/28/16 History (1,250 mg) tablet cholecalciferol (vitamin D3) 25 1,000 unit PO QDAY #0 tab 06/28/16 History mcg (1,000 unit) tablet (Vitamin D3) glipizide 5 mg tablet 5 tab PO TIDAC #0 06/28/16 05/07/21 History lecithin, soy 400 mg capsule 400 mg PO QDAY #0 06/28/16 05/07/21 History levothyroxine 125 mcg tablet 125 mcg PO QDAY #0 tab 06/28/16 05/07/21 History (Synthroid) metformin 500 mg tablet,extended 500 mg PO BID #0 06/28/16 05/07/21 History release 24 hr (Glucophage XR) oxybutynin chloride 5 mg tablet 5 mg PO TID #0 06/28/16 History venlafaxine 150 mg 150 mg PO Q OTHER DAY #0 06/28/16 05/07/21 History capsule,extended release 24 hr (Effexor XR) vitamin B complex (B 1 tab PO QDAY #0 tab 06/28/16 05/07/21 History Complex-Vitamin B12) ibuprofen 200 mg tablet 600 mg PO BIDP PRN #0 07/12/16 History aspirin 81 mg tablet,delayed 81 mg PO BID #60 tab 01/25/17 Rx release hydromorphone 2 mg tablet 1 tab PO Q4HP PRN #20 tab 01/25/17 Rx hydroxyzine pamoate 25 mg capsule 25 - 50 mg PO Q4HP PRN #60 cap 01/25/17 Rx oxycodone 5 mg tablet 5 - 10 mg PO Q3HP PRN #60 tab 01/25/17 Rx azathioprine 75 mg tablet 150 mg PO DAILY 05/07/21 05/07/21 History hydrochlorothiazide 25 mg tablet 25 mg PO DAILY PRN 05/07/21 05/07/21 History lactobacillus combination no.8 3 1 cell PO 2XW 05/07/21 05/07/21 History billion cell capsule losartan 50 mg tablet 50 mg PO BID 05/07/21 05/07/21 History metoprolol tartrate 25 mg tablet 25 mg PO DAILY 05/07/21 05/07/21 History multivitamin with minerals (Daily 1 tab PO 2XW 05/07/21 05/07/21 History Multivitamin-Minerals) potassium chloride 8 mEq 8 meq PO DAILY 05/07/21 05/07/21 History capsule,extended release prednisone 10 mg tablet 10 mg PO DAILY PRN 05/07/21 05/07/21 History pyridostigmine bromide 30 mg tablet 15 mg PO BID 05/07/21 05/07/21 History Allergies Allergy/AdvReac Type Severity Reaction Status Date / Time No Known Drug Allergies Allergy Verified 05/01/21 18:09 Review of Systems Review of Systems ROS: Yes All systems reviewed with the patient and are negative except as other samson documented Exam Vital Signs (past 8 hours): - 05/06/21 22:46 Temperature 97.8 F Pulse Rate 71 Respiratory Rate 20 Blood Pressure 109/60 Pulse Oximetry 98 Oxygen Delivery Method Nasal Cannula Oxygen Flow Rate 4 Narrative Exam Narrative: Gen: Alert, oriented, morbidly obese 70 y.o. female, appears uncomfortable HEENT: normocephalic, atraumatic, conjunctiva clear, sclera non-icteric, oral mucosa pink and moist Neck: supple, full ROM, no JVD, trachea is midline Resp: Lungs CTA, non-labored breathing CV: RRR, no murmur or rubs Abd: soft, non-tender, normoactive BTs Skin: no lesions or rashes, dry and intact Neuro: Alert and oriented X 4 w/no focal deficits. Speech clear and coherent. Extremities: moves all 4 extremities, is ambulatory, negative Angélica?s sign Psyche: normal mood and affect. Objective Labs Result Diagrams: 05/06/21 23:05 05/06/21 23:05 Labs: Laboratory Results - last 24 hr 05/06/21 05/06/21 05/06/21 23:00 23:05 23:05 WBC RBC Hgb Hct MCV MCH MCHC RDW Plt Count Neut % (Auto) Lymph % (Auto) [place] % (Auto) Eos % (Auto) Baso % (Auto) Neut # (Auto) Lymph # (Auto) [place] # (Auto) Eos # (Auto) Baso # (Auto) D-Dimer 842 H Sodium Potassium Chloride Carbon Dioxide BUN Creatinine Estimated GFR BUN/Creatinine Ratio Glucose Lactate Calcium Ferritin Total Bilirubin AST ALT Alkaline Phosphatase Lactate Dehydrogenase Total Creatine Kinase CK-MB (CK-2) CK-MB (CK-2) Rel Index Troponin I C-Reactive Protein NT-Pro-B Natriuret Pep Total Protein Albumin Globulin Albumin/Globulin Ratio Procalcitonin 0.31 SARS-CoV-2 (PCR) Positive H 05/06/21 05/06/21 05/06/21 23:05 23:05 23:05 WBC 6.0 RBC 3.72 L Hgb 11.0 L Hct 32.0 L MCV 86.1 MCH 29.6 MCHC 34.4 RDW 15.8 H Plt Count 209 Neut % (Auto) 86.7 H Lymph % (Auto) 3.7 L [place] % (Auto) 9.0 Eos % (Auto) 0.4 L Baso % (Auto) 0.2 Neut # (Auto) 5200 Lymph # (Auto) 200 L [place] # (Auto) 500 Eos # (Auto) 0 Baso # (Auto) 0 D-Dimer Sodium 129 L Potassium 2.8 L Chloride 94 L Carbon Dioxide 27 BUN 28 H Creatinine 1.60 H Estimated GFR 31.8 L BUN/Creatinine Ratio 17.5 Glucose 111 H Lactate 3.9 H Calcium 8.2 L Ferritin 742 H Total Bilirubin 0.8 AST 82 H ALT 36 H Alkaline Phosphatase 56 Lactate Dehydrogenase 781 H Total Creatine Kinase 556 H CK-MB (CK-2) 1.51 CK-MB (CK-2) Rel Index 0.3 L Troponin I < 0.012 C-Reactive Protein 6.0 H NT-Pro-B Natriuret Pep 165 H Total Protein 6.3 Albumin 3.3 L Globulin 3.0 Albumin/Globulin Ratio 1.1 Procalcitonin SARS-CoV-2 (PCR) Assessment & Plan Assessment & Plan narrative: Medina Mosley is a 69 y.o. female will admitted for treatment and management of a COVID-19 pneumonia. 1. COVID-19 pneumonia, acute, present on admission * Patient was initially mildly hypoxic in the emergency department on presentation with a oxygen saturation of 98% on 3 L and is now at 100% * She was given a loading dose of remdesivir 200 mg IV x1 and dexamethasone 6 mg IV times on and will be continued at the maintenance dose of remdesivir 100 mg IV daily and the same for IV dexamethasone * RT was requested to see the patient and assess her oxygen needs 2. Acute hypokalemia, present on admission * Potassium was 2.8 and she was given IV riders in the ED * She also appears to be somewhat dry and will be given an additional L of normal saline at 150 mL/hour x1 L 3. Elevated D-dimer unknown if PE is suspected, Wells score of 4.5 * Her creatinine and GFR contour indicate contrast CT angio * If with continued or worsening respiratory impairment consider nuclear perfusi on scan * She is started initially on the enoxaparin 40 mg however given COVID status consider anticoagulation at half dose which would be 70 mg b.i.d. 4. Diabetes type 2 * A1c is 6.3 * Low-dose correctional insulin scale * Carb controlled diet with ACHS glucose checks 5. Essential hypertension, chronic * She is currently normotensive * She will be continued on losartan 50 mg p.o. b.i.d. * She is written for metoprolol however this has not been confirmed * Telemetry 6. Myasthenia gravis, chronic * Continue home doses of azathioprine 150 mg and pyridostigmine 15 mg po bid 7. Hyperlipidemia, chronic * Continue home dose of atorvastatin 40 mg p.o. at bedtime 8. Hypothyroidism, chronic * Continue home dose of levothyroxine 125 mcg daily 9. Depression, chronic * Continue home dose of venlafaxine 150 mg daily VTE Prophylaxis: Wells risk score 4.5 Enoxaparin 40 mg subQ once daily Patient is admitted to the inpatient service due to the severity of disease, risks of further disease progression and this stay is expected to exceed 2 midnights. FEN: IV fluids: She will receive a total of 2 liters, diet: carb controlled, labs: CBC, C/BMP, liver enzymes, [employer] None Dispo: Unknown at this time Code status: DNR/DNI as discussed with the patient who identifies her daughter Elizabeth Kelly [phone] as her surrogate and POA. I have utilized all available immediate resources (patient, family member, internal and external medical records) to obtain, update, or review the patient ?s current home medications. Scores Wells' Criteria for PE Clinical signs and symptoms of DVT: Yes PE is #1 Dx or equally likely: No Heart rate > 100: No Immobilization at least 3 days or surg in previous 4 weeks: Yes History of PE or DVT: No Hemoptysis: No Malignancy w/Treatment within 6 months or palliative: No Wells' PE Score total: 4.5
[2021-05-07 02:27] LABS: Lactate 2HR (Lactic Acid Rflx) 3.5 mmol/L (0.7-2.1)
[2021-05-07 02:30] LABS: Hemoglobin A1C% w Est Avg Glu 6.3 % (4.0-6.0)
[2021-05-07 02:41] LABS: Fractionated Inspired Oxygen 36; HCO3 ABG 22 mmol/L (22-26); Oxygen Saturation ABG 97 % (95-100); PCO2 ABG 34.8 mmHg (35-45); PO2 ABG 90 mmHg (80-100); TCO2 ABG 23 mmol/L (21-31)
[2021-05-07 06:03] LABS: Add Manual Diff / Slide Review NO; Basophils Absolute Auto 0 /uL (0-100); Basophils Percent Auto 0.3 % (0-2); Eosinophils Absolute Auto 0 /uL (0-450); Eosinophils Percent Auto 0.2 % (2-4); Hematocrit 33.9 % (36-46); Hemoglobin 11.4 g/dL (12.0-16.0); Lymphocytes Absolute Auto 200 /uL (1100-4500); Lymphocytes Percent Auto 3.1 % (25-40); Mean Corpuscular HGB Conc 33.7 % (30-36); Mean Corpuscular Hemoglobin 29.2 PG (26-34); Mean Corpuscular Volume 86.7 fL (80-100); Monocytes Absolute Auto 300 /uL (0-900); Monocytes Percent Auto 5.7 % (3-14); Neutrophils Absolute Auto 4800 /uL (1500-7000); Neutrophils Percent Auto 90.7 % (50-75); Platelet Count 209 X10^3/uL (150-400); Red Blood Cell Count 3.91 X10^6/uL (4.0-5.2); Red Cell Distribution Width 15.9 % (11.6-14.8); White Blood Cell Count 5.3 X10^3/uL (4.5-11.0)
[2021-05-07 06:12] LABS: Alanine Aminotransferase 47 IU/L (<35); Albumin 3.3 g/dL (3.5-5.0); Albumin Globulin Ratio 1.1 (1.0-2.8); Alkaline Phosphatase 63 U/L (38-126); Aspartate Aminotransferase 100 IU/L (14-36); BUN Creatinine Ratio 23.8 (6-22); Bilirubin Total 0.8 mg/dL (0.2-1.3); Bilirubin Unconjugated 0.5 mg/dL (0.0-1.1); Blood Urea Nitrogen 29 mg/dL (7-17); Calcium 8.2 mg/dL (8.4-10.2); Carbon Dioxide 26 mmol/L (22-32); Chloride 94 mmol/L (98-107); Estimated Glomerular Filt Rate 43.4 mL/min (>60); Glucose 200 mg/dL (80-110); HEMOLYSIS < 15 (0-50); Magnesium 2.1 mg/dL (1.6-2.3); Potassium 3.6 mmol/L (3.4-5.1); Sodium 127 mmol/L (137-145); Total Protein 6.3 g/dL (6.3-8.2)
[2021-05-07] MEDS: azaTHIOprine 50 MG TABLET 150 MG PO (08:18)
[2021-05-07] MEDS: INSULIN LISPRO 100 UNIT/ML 3ML VIAL SUBCUT ×2 (08:18→12:27)
[2021-05-07] MEDS: VENLAFAXINE ER 75 MG CAP 150 MG PO (08:21)
[2021-05-07] MEDS: ENOXAPARIN 40 MG/0.4 ML SYRINGE SUBCUT (09:21)
[2021-05-07] MEDS: AZITHROMYCIN 250 MG TABLET 500 MG PO (09:22)
[2021-05-07] MEDS: METOPROLOL IR 25 MG TABLET PO (09:22)
[2021-05-07] MEDS: LEVOTHYROXINE 125 MCG TABLET PO (09:22)
[2021-05-07] MEDS: OXYBUTYNIN 5 MG TABLET PO (09:22)
[2021-05-07] MEDS: SODIUM CHLORIDE 0.9% FLUSH 10 ML IV (09:23)
--- NOTE | 2021-05-07 10:57 | CM.DANOTE ---
Addendum entered by Chely Quiros LPN 05/07/21 14:20: Pt will now be going home on supplemental oxygen per Dr. Lawler as she breathes more comfortably with it at this time. RT to facilitate. Original Note: Discharge Planning/Care Management DCP: assessment: case received, discussed in Team Rounds. Dr. Stallings stated that pt may be ready for d/c back home today. COVID +/vaccinated status EMR reveiwed, conferred with LARRY Hess, caring for pt today and then spoke by phone with pt. Introduced self and role. Pt is a 70 year old female who admitted just after midnight/05/07: 00:03 to care of hospitalist team. PCP: Hector Mas Payer: Medicare and [facility] Co-morbidities of obesity and myasthenia gravis/immunocompromised are noted. Pt lives with her sister Lyn Phan who was just in this hospital for COVID+/unvaccinated status and did d/c home on 05/05 with supplemental oxygen. At this time it sounds like pt will not be going home with the supplemental oxygen needs and LARRY Hess says she is mobilizing in the room without difficulty. A d/c order is in place with specifics partially completed. A lab test is pending. Pt confirms that her daughter Naomy will be picking her up this afternoon, pending her final d/c ok from Dr. Stallings. CM Discharge Assessment Start: 05/07/21 10:55 Freq: Status: Active Protocol: Document 05/07/21 10:55 ITV (Rec: 05/07/21 10:56 ITV [id number]) Discharge Planning Assessment Advance Directives? Yes Advance Directives on File Yes History Provided By Patient,Medical Record Has Patient been admitted in last 30 No days? Prior Living Arrangements House Household Members family Comment lives with her sister Lyn Phan Independent with ADL's Yes Is patient alert and oriented? Yes Discharge Plan Home
--- NOTE | 2021-05-07 11:14 | OT.IPNOTE ---
Per Hospitalist no OT eval order needed at this time, therefore discharge OT eval orders.
[2021-05-07 11:33] LABS: Appearance Urine UA CLEAR; Bilirubin Urine UA NEGATIVE (NEGATIVE); Color Urine UA YELLOW; Glucose Urine UA NEGATIVE (Negative); Ketones Urine UA NEGATIVE (NEGATIVE); Leukocyte Esterase Urine UA NEGATIVE (NEGATIVE); Nitrite Urine UA NEGATIVE (Negative); Occult Blood Urine UA TRACE-INTACT (Negative); Protein Urine UA NEGATIVE (Negative); Urobilinogen Urine UA 0.2 E.U./dL (0.2)
--- NOTE | 2021-05-07 11:36 | P.DS_ITS ---
History of Present Illness History of Present Illness Chief complaint: Covid+ SOB Narrative: Medina Mai is a 70-year-old morbidly obese female with hypertension, diabetes type 2, myasthenia gravis on immunosuppressants, hyperlipidemia and hypothyroidism presents back to the emergency department after being seen 4 days ago and having been tested positive for COVID-19 due to continuing fatigue, sweats with no fever, weakness, lightheadedness and diarrhea for the past several days. She denies actually having a fever she stated it was 97, denies nausea or vomiting, dysuria or numbing and tingling of her upper lower extremities. The patient apparently was exposed to her sister who lives with her and while the patient is vaccinated her sister's not. 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 Chest x-ray was done in the ED however it is not been read. Patient is afebrile, blood pressure 111/65, heart rate 70, respiratory rate 22, oxygen saturation 100% on a 4 L, she weighs 131.5 kg with a BMI of 48. WBC is 6.0 RBC 3.72, hemoglobin and hematocrit are 11.0 in 32 respectively platelet count is 2 09 she has mild lymphopenia, her D-dimer was elevated 842, sodium 129, potassium 2.8, chloride 94, bicarb 27, creatinine 0.60 which is new for her with 0 GFR of 31.8 glucose is 110, lactate 3.9, calcium 8.2, ferritin 742, AST 82, ALT 36, lactate dehydrogenase is 781, total CK is 956, CK-MB is 3%, troponin is within normal limits, C-reactive protein is 6.0, proBNP is 165 essentially normal, albumin is 2.3, and COVID-19 PCR repeated over 4 days continues to be positive Discharge Providers Provider Date of admission: 05/07/21 00:03 Discharge Date: 05/07/21 Consults: 05/07/21 10:38 Consult to Occupational Therapy Evaluate & Treat Comment: Physician Instructions: Evaluate and treat 05/07/21 10:42 Consult to Occupational Therapy Evaluate & Treat Comment: Physician Instructions: cancel OT eval order Discharge provider: Ciaran Stallings MD Summary Hospital Course Discharge Diagnosis: 1. Acute hypoxemic respiratry failure from COVID pneumonia 2. Acute hypokalemia 3. Type 2 Diabetes 4. Hypertension 5. Myasthenia Gravis, chronic 6. Hyperlipidemia 7. Hypothyroidism 8. Depression 9. MICHELLE 10. Hyponatremia Hospital Course: Ms Mosley was admitted with cough and shortness of breath and diagnosed with COVID pneumonia. She had been vaccinated. She is on immunosuppressants for myasthenia gravis. She did not have evidence of myasthenic crisis with no bulbar symptoms. She was started on dexamethasone and remdesivir. She had good improvement in her respiratory symptoms. She had mild MICHELLE and and elevated lactated consistent with dehydration and was improved with IV fluids. On day of discharge she was ambulating with sats in the mid 90s. She was eating well. She felt mildly short of breath which was improved with a little oxygen. She was discharged home with oxygen for improvement in her symptoms as she recovers. She was encouraged to hold her ibuprofen, lisinopril, and metformin and follow up her PCP within the week and then potentially restart these medications after repeat BMP. Exam Vital Signs (past 8 hours): Oxygen Delivery Method Room Air Oxygen Flow Rate 0 Narrative Exam Narrative: Gen: Alert, oriented, no acute distress Resp: lungs clear bilaterally CV: regular rate and rhythm with no murmurs Abd: soft, non-tender, normal bowel sounds Skin: no lesions or rashes, dry and intact Neuro: Alert and oriented with no focal deficits. Speech clear and coherent. Objective Labs Result Diagrams: 05/07/21 05:30 05/07/21 05:30 [facility] Medical History Diabetes type 2, controlled Essential hypertension HLD (hyperlipidemia) Hypothyroidism Morbid obesity with BMI of 45.0-49.9, adult Myasthenia gravis Surgical History S/P total knee arthroplasty Family History Mother Diabetes mellitus Father Testicular cancer Social History household members: family Smoking Status: Never smoker Discharge Plan Discharge Plan Patient Disposition: Home Provider Discharge Comment: Ms. Mosley was admitted with COVID pneumonia. She had good improvement quickly. She had good oxygen saturations, but will be sent home with oxygen as she is still short of breath with activity. She should hold on taking her losartan and ibuprofen as she had some kidney strain with the COVID infection. She should isolate for at least another week. Please follow up with your PCP within one week. Discharge orders & Medications Prescriptions: Continued levothyroxine [Synthroid] 125 MCG tablet 125 mcg PO QDAY Qty: 0 RF: 0 glipizide 5 MG tablet 5 tab PO TIDAC Qty: 0 RF: 0 venlafaxine [Effexor XR] 150 MG capsule,extended release 24hr 150 mg PO Q OTHER DAY Qty: 0 RF: 0 oxybutynin chloride 5 MG tablet 5 mg PO TID Qty: 0 RF: 0 vitamin B complex [B Complex-Vitamin B12] 1 EACH tablet 1 tab PO QDAY Qty: 0 RF: 0 cholecalciferol (vitamin D3) [Vitamin D3] 1,000 UNIT tablet 1,000 unit PO QDAY Qty: 0 RF: 0 lecithin, soy 400 MG capsule 400 mg PO QDAY Qty: 0 RF: 0 calcium carbonate 500 MG tablet 1 tab PO Qty: 0 RF: 0 [RED YEAST RICE] 1 tab PO QDAY Qty: 0 RF: 0 aspirin 81 MG tablet,delayed release (DR/EC) 81 mg PO BID Qty: 60 RF: 1 hydromorphone 2 MG tablet 1 tab PO Q4HP PRNQty: 20 RF: 0 hydroxyzine pamoate 25 MG capsule 25 - 50 mg PO Q4HP PRNQty: 60 RF: 1 oxycodone 5 MG tablet 5 - 10 mg PO Q3HP PRNQty: 60 RF: 0 prednisone 10 mg Tablet 10 mg PO DAILY PRN (Reason: inflamation) RF: 0 potassium chloride 8 mEq Capsule, Extended Release 8 meq PO DAILY RF: 0 hydrochlorothiazide 25 mg Tablet 25 mg PO DAILY PRN (Reason: htn) RF: 0 multivitamin with minerals [Daily Multivitamin-Minerals] Tablet 1 tab PO 2XW RF: 0 azathioprine 75 mg Tablet 150 mg PO DAILY RF: 0 metoprolol tartrate 25 mg Tablet 25 mg PO DAILY RF: 0 lactobacillus combination no.8 3 billion cell Capsule 1 cell PO 2XW RF: 0 pyridostigmine bromide 30 mg Tablet 15 mg PO BID RF: 0 Discontinued metformin [Glucophage XR] 500 MG tablet extended release 24 hr 500 mg PO BID Qty: 0 RF: 0 ibuprofen 200 MG tablet 600 mg PO BIDP PRNQty: 0 RF: 0 losartan 50 mg Tablet 50 mg PO BID RF: 0 Discharge Data Attending Provider: Génesis Jurado
[2021-05-07 11:55] LABS: Bacteria Urine Few (2-10); Culture Indicated Urine Cult Not Indicated; RBC Urine 0-1/HPF (0-5/HPF); Squamous Epithelial Cell Urine 1-5 /HPF (0-5/HPF); WBC Urine 1-5/HPF (0-5/HPF)
[2021-05-07 12:08] LABS: Lactate (Lactic Acid) 1.7 mmol/L (0.7-2.1)
--- NOTE | 2021-05-07 14:49 | PC.NURSE ---
discharge info reviewed with pt. saline lock x2 dc'd. pt waiting for daughter to bring clothes. O2 tank here from [place] for use at home.
--- NOTE | 2021-05-07 16:05 | PC.NURSE ---
Assumed care of pt at 1500. Pt d/c to home ordered. Dtr brought clothing at 1530. Pt dressed and escorted out at 1545 via w/c to private vehicle. D/C instructions given by dayshift RN. Pt left in stable condition with all personal belongings.
[2021-05-07 20:34] LABS: Enterococcus species Not Detected (Not Detect); Listeria monocytogenes Not Detected (Not Detect); Methicillin-resistant gene Not Detected (Not Detect); Staphylococcus species Detected (Not Detect)
[2021-05-07 20:35] LABS: Acinetobacter baumannii Not Detected (Not Detect); Candida albicans Not Detected (Not Detect); Candida glabrata Not Detected (Not Detect); Candida krusei Not Detected (Not Detect); Candida parapsilosis Not Detected (Not Detect); Candida tropicalis Not Detected (Not Detect); E. coli Not Detected (Not Detect); Enterobacter cloacae complex Not Detected (Not Detect); Enterobacteriaceae species Not Detected (Not Detect); Haemophilus influenzae Not Detected (Not Detect); Neisseria meningitidis Not Detected (Not Detect); Proteus species Not Detected (Not Detect); Pseudomonas aeruginosa Not Detected (Not Detect); Serratia marcescens Not Detected (Not Detect); Streptococcus agalactiae (Gr B Not Detected (Not Detect); Streptococcus pneumonia Not Detected (Not Detect); Streptococcus pyogenes (Gr A) Not Detected (Not Detect); Streptococcus species Not Detected (Not Detect)
== END 2021-05-07 15:45 | disposition home or self-care (01) ==
LOC: ED 23:01 → AC 05-07 01:30 → ICU 05-07 02:04 → AC 05-07 10:30 → ICU 05-07 10:32
PROVIDERS: Internal Medicine; Admitting Provider Nurse Practitioner Family; Emergency Provider Emergency Medicine; Referring Provider Emergency Medicine; Visit Provider Nurse Practitioner Family
DX: U07.1 COVID-19 (principal); J96.01 Acute respiratory failure with hypoxia; J12.82 Pneumonia due to coronavirus disease 2019; N17.9 Acute kidney failure, unspecified; E87.1 Hypo-osmolality and hyponatremia; G70.00 Myasthenia gravis without (acute) exacerbation; E66.01 Morbid (severe) obesity due to excess calories; R53.83 Other fatigue; I10 Essential (primary) hypertension; E11.9 Type 2 diabetes mellitus without complications; E78.5 Hyperlipidemia, unspecified; E03.9 Hypothyroidism, unspecified; F32.9 Major depressive disorder, single episode, unspecified; Z79.84 Long term (current) use of oral hypoglycemic drugs
CPT/HCPCS: 36415; 36600; 71045; 80048; 80053; 80076; 81001; 82550; 82553; 82728; 82805; 82962; 83036; 83605; 83615; 83735; 83880; 84145; 84484; 85025; 85379; 86140; 87040; 87150; 87205; 87635; 93005; 93010; 94762; 96361; 96365; 96372; 96375; 96376; 99284; C9803; G0378; J1100; J1650; J1815; J7500

== ENCOUNTER → 2021-12-07 11:44 | Outpatient (CLI) | payer MEDICARE, OTHER, SELFPAY ==
[2021-05-07 02:19] VITALS: BMI 47.5
--- NOTE | 2021-12-07 | DI.MRI.S_ITS ---
PROCEDURE: MR CERVICAL SPINE WO CON INDICATIONS: Spinal stenosis, cervical region TECHNIQUE: Noncontrast sagittal T1 spin echo and T2 fast spin echo, sagittal STIR, foraminal oblique sagittal T2 fast spin echo, and axial gradient echo or T2 fast spin echo through the cervical spine. COMPARISON: [facility] [place], CR, XR CERVICAL SPINE WITH OBLIQUES, 11/16/2021, 15:35. [facility], , MR CERVICAL SPINE WO CON, 01/22/2019, 16:18. FINDINGS: Image quality: This examination is limited by involuntary motion artifact. Alignment and Curvature: There is normal bony alignment. Bone Marrow: Marrow demonstrates normal overall signal. Spinal Cord: Visualized spinal cord has normal size and signal. No cerebellar tonsillar herniation. Paraspinous Soft Tissues: No paravertebral masses. Prevertebral soft tissues are normal in thickness. C2-C3: The disc height is well-preserved. Loss of disc signal is seen at this level. A mild degree of generalized disc osteophyte complex is seen. At least moderate facet hypertrophy is seen. There is moderate right-sided and moderate to severe left-sided neural foraminal narrowing seen. Mild central canal narrowing is seen. There is mild progression of degenerative change compared to 2019. C3-C4: The disc height is well-preserved. Loss of disc signal is seen at this level. Mild disc osteophyte complex is seen. At least moderate facet hypertrophy is seen. There is moderate to severe bilateral neural foraminal narrowing seen, right worse than left. Mild central canal narrowing is seen. When comparison is made with the prior images, these findings are similar. C4-C5: Mild loss of disc height is seen. Loss of disc signal is seen. A mild degree of generalized disc osteophyte complex is seen. Moderate to prominent facet hypertrophy is seen, right worse than left. There is at least moderate right-sided and mild left-sided neural foraminal narrowing. No significant central canal narrowing is seen. When comparison is made with the prior images, these findings are similar. C5-C6: Mild loss of disc height is seen. Loss of disc signal is seen. At least moderate disc osteophyte complex is seen, which is eccentric to the left. Moderate to prominent facet hypertrophy is seen. There is moderate to severe bilateral neural foraminal narrowing seen. Moderate central canal narrowing is seen. There is associated mass effect upon the ventral spinal cord. No significant change from the prior. C6-C7: The disc height is well-preserved. Loss of disc signal is seen at this level. Moderate disc osteophyte complex is seen, which is eccentric to the left. There is moderate to prominent facet hypertrophy seen. There is at least moderate bilateral neural foraminal narrowing seen, right worse than left. Moderate central canal narrowing is seen. There is associated mass effect upon the ventral spinal cord. These degenerative changes appear mildly progressed compared to 2019. C7-T1: Moderate loss of disc height is seen. Loss of disc signal is seen. Moderate generalized disc osteophyte complex is seen. Mild facet joint hypertrophy is seen. Mild bilateral neural foraminal narrowing is seen. No central canal narrowing is seen. When comparison is made with the prior images, these findings are similar. IMPRESSION: Multiple levels of cervical spine degenerative change are seen, which are similar to 2019, although slightly progressed at C2-C3 and C6-C7 since the prior MRI. Dictated by: Rubin Pappas M.D. on 12/07/2021 at 13:59 Approved by: Rubin Pappas M.D. on 12/07/2021 at 14:10
== END ==
PROVIDERS: PCP Internal Medicine; Referring Provider Physical Medicine & Rehabilitation Pain Medicine; Visit Provider Physical Medicine & Rehabilitation Pain Medicine
DX: M48.02 Spinal stenosis, cervical region (principal); M47.812 Spondylosis without myelopathy or radiculopathy, cervical region
CPT/HCPCS: 72141

== ENCOUNTER → 2022-08-17 19:04 | Outpatient (CLI) | payer MEDICARE, OTHER, SELFPAY ==
[2021-05-07 02:19] VITALS: BMI 47.5
--- NOTE | 2022-08-17 | DI.MRI.S_ITS ---
PROCEDURE: MR LUMBAR SPINE WO CON INDICATIONS: SPINAL STENOSIS, LUMBAR REGION TECHNIQUE: Noncontrast sagittal T1 spin echo and T2 fast echo, sagittal STIR, and T2 fast spin echo through the lumbar spine. In cases with scoliosis, additional coronal T2 fast spin echo may be performed. COMPARISON: [facility], MR, MR LUMBAR SPINE WO CON, 04/20/2018, 7:57. FINDINGS: Image quality: Excellent. Alignment and Curvature: There is normal bony alignment. Bone Marrow: Marrow is of normal overall signal. No acute vertebral body compression fractures. Spinal Cord: Conus medullaris terminates at the L2 level. Visualized cord demonstrates normal signal and size. Paraspinous Soft Tissues: No paravertebral masses. T12-L1: Mild disc bulge. Mild facet hypertrophy. No canal stenosis or foraminal stenosis. L1-L2: Disc bulge. Facet hypertrophy. Mild canal stenosis. Mild bilateral foraminal stenosis. L2-L3: Progressive findings. Moderately large diffuse disc bulge with superimposed right paracentral disc protrusion. Prominent bilateral facet hypertrophy. Severe canal stenosis. L3-L4: Stable findings. Disc bulge. Facet and ligament hypertrophy. Severe canal stenosis. Moderate to severe bilateral foraminal narrowing with a degree of bilateral foraminal L3 nerve root impingement. L4-L5: Progressive findings. Marked central canal stenosis secondary to diffuse disc bulge and facet and ligament hypertrophy. Again noted is left foraminal disc protrusion. There is [id number] right foraminal narrowing and moderate to severe left foraminal narrowing with a degree of left foraminal L4 nerve root impingement. L5-S1: Marked bilateral facet hypertrophy. Borderline canal stenosis. Moderate right foraminal narrowing with flattening deformity on the exiting right L5 nerve root. Moderate to severe left foraminal narrowing with a degree of left foraminal L5 nerve root impingement. IMPRESSION: 1. There is underlying multilevel facet arthropathy. 2. Overall progressive findings. Canal stenosis is mild at L1-L2, severe at L2-L3, severe at L3-L4, marked at L4-L5, and borderline at L5-S1. 3. Significant multilevel foraminal narrowing as described above. Dictated by: Dinesh Robles M.D. on 08/18/2022 at 8:54 Approved by: Dinesh Robles M.D. on 08/18/2022 at 9:33
== END ==
PROVIDERS: PCP Internal Medicine; Referring Provider Physical Medicine & Rehabilitation Pain Medicine; Visit Provider Physical Medicine & Rehabilitation Pain Medicine
DX: M48.062 Spinal stenosis, lumbar region with neurogenic claudication (principal); M47.816 Spondylosis without myelopathy or radiculopathy, lumbar region
CPT/HCPCS: 72148

== ENCOUNTER → 2024-01-21 13:35 | Outpatient (CLI) | payer MEDICARE, OTHER, SELFPAY ==
[2021-05-07 02:19] VITALS: BMI 47.5
--- NOTE | 2024-01-21 | DI.MRI.S_ITS ---
PROCEDURE: MR LUMBAR SPINE WO CON INDICATIONS: spinal stenosis TECHNIQUE: Noncontrast sagittal T1 spin echo and T2 fast echo, sagittal STIR, and T2 fast spin echo through the lumbar spine. In cases with scoliosis, additional coronal T2 fast spin echo may be performed. COMPARISON: [facility], MR, MR LUMBAR SPINE WO CON, 08/17/2022, 19:25. FINDINGS: Image quality: Excellent Mild levoscoliosis of the lumbar spine, centered at L3. Grade 1 anterolisthesis of L2 on L3, L3 on L4. Mild retrolisthesis of L4 on L5. Grade 1 anterolisthesis of L5 on S1. Vertebral body height of the lumbar spine are well maintained. Mild fibrofatty endplate change at L1-2. No suspicious marrow replacing lesion in the lumbar spine. Conus terminates at the level of L1-2, and is unremarkable. T11-T12: Mild bilateral facet arthropathy. No stenosis T12-L1: Mild disc bulge. Mild bilateral facet arthropathy. No stenosis. L1-2: Disc bulge. Mild bilateral facet arthropathy. Mild central canal stenosis. No neural foraminal stenosis. L2-3: Disc bulge. Moderate bilateral facet arthropathy. Severe central canal stenosis. Mild bilateral neural foraminal stenosis. L3-4: Disc bulge. Moderate bilateral facet arthropathy. Severe central canal stenosis. Moderate right and left neural foraminal stenosis. L4-5: Disc bulge. Mild bilateral facet arthropathy. Severe central canal stenosis. Mild right and left neural foraminal stenosis. L5-S1: Disc bulge with severe right, mild left facet arthropathy. No central canal stenosis. Visualized sacrum is intact. Mild degenerative changes of bilateral sacroiliac joints, left greater right. No abdominal aortic aneurysm. IMPRESSION: 1. Multilevel degenerative changes of the lumbar spine, with severe central canal stenosis at L2-3, L3-4, and L4-5, grossly unchanged from prior exam. 2. Additional neural foraminal stenosis as described above. Dictated by: Genesis Bryan M.D. on 01/22/2024 at 11:25 Approved by: Genesis Bryan M.D. on 01/22/2024 at 11:34
== END ==
LOC: MRI 13:38
PROVIDERS: PCP Internal Medicine; Referring Provider Orthopaedic Surgery Orthopaedic Surgery of the Spine; Visit Provider Orthopaedic Surgery Orthopaedic Surgery of the Spine
DX: M48.062 Spinal stenosis, lumbar region with neurogenic claudication (principal); M47.816 Spondylosis without myelopathy or radiculopathy, lumbar region; M47.817 Spondylosis without myelopathy or radiculopathy, lumbosacral region; M51.36 Other intervertebral disc degeneration, lumbar region; M51.37 Other intervertebral disc degeneration, lumbosacral region
CPT/HCPCS: 72148

== ENCOUNTER → 2024-02-14 13:53 | Outpatient (CLI) | payer MEDICARE, OTHER, SELFPAY ==
[2021-05-07 02:19] VITALS: BMI 47.5
== END ==
LOC: RESP 13:58
PROVIDERS: PCP Internal Medicine; Referring Provider Orthopaedic Surgery Orthopaedic Surgery of the Spine; Visit Provider Orthopaedic Surgery Orthopaedic Surgery of the Spine
DX: Z01.818 Encounter for other preprocedural examination (principal)
CPT/HCPCS: 93005

== ENCOUNTER → 2024-02-25 13:36 | Outpatient (CLI) | payer MEDICARE, OTHER, SELFPAY ==
[2021-05-07 02:19] VITALS: BMI 47.5
--- NOTE | 2024-02-25 | DI.CT.S_ITS ---
PROCEDURE: CT LUMBAR SPINE WO CON INDICATIONS: LUMBAR PAIN TECHNIQUE: Noncontrast 3 mm thick sections acquired from the T12 level to the sacrum. Sagittal and coronal reformats were constructed. For radiation dose reduction, the following was used: automated exposure control. COMPARISON: [facility], MR, MR LUMBAR SPINE WO CON, 01/21/2024, 13:52. FINDINGS: Image quality: Excellent. Bones: Mild levoconvex curvature. Minimal anterolisthesis of L2 on L3 and L3 on L4 and minimal retrolisthesis of L4 on L5. No acute vertebral body compression fractures. No suspicious lytic or blastic bony lesions. No pars defects. T12-L1: Mild bilateral facet arthropathy. Mild to moderate central canal narrowing. L1-L2: Disc osteophyte complex with severe central canal narrowing. Mild bilateral facet arthropathy with no osseous neural foraminal narrowing. L2-L3: Disc osteophyte complex with severe central canal narrowing. Moderate bilateral facet arthropathy with no osseous neural foraminal narrowing. L3-L4: Disc osteophyte complex with severe central canal stenosis . Moderate bilateral facet arthropathy with no osseous neural foraminal narrowing L4-L5: Disc osteophyte complex with severe central canal stenosis. Moderate bilateral facet arthropathy with osseous neural foraminal narrowing. L5-S1: Disc osteophyte complex with severe central canal stenosis. Moderate bilateral facet arthropathy with osseous neural foraminal narrowing. Soft tissues: No retroperitoneal masses or hematomas. Visualized aorta is normal in caliber. IMPRESSION: Multilevel degenerative changes with severe central canal narrowing at L2-L3, L3-L4 and L4-L5, better characterized on recent MRI spine dated January 21, 2024. Dictated by: Bridger Crabtree M.D. on 02/25/2024 at 20:17 Approved by: Bridger Crabtree M.D. on 02/25/2024 at 20:26
== END ==
PROVIDERS: PCP Internal Medicine; Referring Provider Orthopaedic Surgery Orthopaedic Surgery of the Spine; Visit Provider Orthopaedic Surgery Orthopaedic Surgery of the Spine
DX: M48.062 Spinal stenosis, lumbar region with neurogenic claudication (principal); M48.07 Spinal stenosis, lumbosacral region; M47.816 Spondylosis without myelopathy or radiculopathy, lumbar region; M47.817 Spondylosis without myelopathy or radiculopathy, lumbosacral region
CPT/HCPCS: 72131

== ENCOUNTER 2024-03-25 06:09 | Inpatient (IN) | payer MEDICARE, OTHER, SELFPAY ==
[2021-05-07 02:19] VITALS: BMI 47.5
[2024-03-18 12:48] VITALS: BMI 45.7
[2024-03-25] VITALS (14 sets, daily range): BP systolic 120–153; BP diastolic 61–82; PULSE 74–91; RESP 12–20; TEMP 36.2–36.7; O2SAT 93–99; BMI 45.7
--- NOTE | 2024-03-25 | DI.RAD.S_ITS ---
PROCEDURE: XR LUMBAR SPINE 2-3V INDICATIONS: L4-5 TLIF TECHNIQUE: 2 views of the lumbar spine were acquired. COMPARISON: None. FINDINGS: Intraoperative fluoroscopic images demonstrate fusion at L4-5 with intervertebral spacer. Good anatomic alignment. Hardware appears intact. IMPRESSION: L4-5 fusion. Dictated by: Brianna Evangelista M.D. on 03/25/2024 at 15:23 Approved by: Brianna Evangelista M.D. on 03/25/2024 at 15:26
[2024-03-25] MEDS: ACETAMINOPHEN 325 MG TABLET 975 MG PO (07:18)
[2024-03-25] MEDS: FAMOTIDINE 20 MG/2 ML VIAL IV (07:20)
[2024-03-25] MEDS: LACTATED RINGERS 1,000 ML 42 ML IV ×2 (07:20→10:05)
[2024-03-25] MEDS: PREGABALIN 75 MG CAPSULE PO (07:20)
--- NOTE | 2024-03-25 07:42 | PM.PREOP ---
Pre-operative Note Interval Note History & Physical reviewed/Exam performed by Physician: Yes Changes to H&P: No
[2024-03-25] MEDS: CEFAZOLIN 2 GM/100 ML PREMIX 100 ML IV (08:10)
[2024-03-25] MEDS: BUPIVACAINE 0.25% (PF) 30 ML, EPINEPHrine 0.15 MG INJ (08:36)
[2024-03-25] MEDS: BUPIVACAINE LIPOSOME 266 MG/20 ML VIAL INJ (08:38)
--- NOTE | 2024-03-25 08:41 | SUR.OPER ---
Prone on spine table, head in foam head support, padded chest and pelvic supports, gel pad at knees, lower legs supported by pillows; nipples, genitalia and toes free of pressure, arms secured on foam padded arm boards at <90 degrees abduction. Tape over blanket at thigh secured to table.
--- NOTE | 2024-03-25 11:21 | P.OP_ITS ---
Operative Date/Time/Diagnoses Date of procedure: 03/25/24 Time of procedure: 07:40 Pre-op diagnosis: 1. L2-3, L3-4, L4-5 spinal stenosis with neurogenic claudication 2. Lumbar foramen stenosis Post-op diagnosis: same Procedure & Clinicians Procedure: 1. L4-5 Postero-lateral and posterior interbody fusion 2. L4-5 interbody cage placement. 3. L4-5 decompressive laminectomy with bilateral facetecomies 4. L4-5 Posterior non-segmental instrumentation 5. L2-3, L3-4 laminectomies with bilateral partial facetecomies 6. [place] of bone marrow from iliac crest 7. Utilization of microsurgical technique and operating microscope 8. Utilization of robotic assisted navigation Same procedure as scheduled: Yes Indications: Patient has been having chronic back pain and worsening lumbar radiculopathy and symptoms of neurogenic claudication. Patient has L2-3 L3-4 L4-5 spinal stenosis with severe foraminal stenosis at L4- 5 on the left correlating with her symptoms. Patient failed multiple conservative management with worsening pain weakness and numbness in her lower extremity. Patient has been having difficulty performing activity of daily living. After discussing risks benefits of treatment options, patient elected proceed with surgery. Surgeon: Krystian Smith Fire Operations Forester: Yodit Atwood Click Yes if Unassisted: No Anesthesia Type: General Operative Notes Closure Type: primary Specimen(s): none sent Prosthetic devices, grafts, tissues, transplants, or devices: Globus CREO MIS screws, Rise cage Applied: catheter Estimated Blood Loss (mL): 150 Blood products transfused: none Procedure in detail: Patient was seen in the preoperative area. Risks and benefits of the surgery was discussed with the patient. Informed consent was obtained from the patient and placed in the chart. Surgical site was marked. Patient was taken to the operative room. General anesthesia was administered. Prophylactic antibiotic was given to the patient less than 30 min before the incision was made. Patient was placed into a prone position on the Jose table. Patient's back was then prepped and draped in the sterile fashion. Time-out was performed at this time. After patient was prepped and draped, patient's PSIS was palpated and marked bilaterally. Small 1 cm incision was made over the PSIS for placement of the reference probes. Two trocar was placed into the PSIS 1 on each side. The reference probe was attached to the trocar of the reference apparatus. At this time the C-arm imaging was used to confirm AP and lateral of L4-L5 vertebrae and merged the C-arm imaging using the Restorius robotic navigation system with the CT of the lumbar spine. After successful merging was completed and confirmed, skin marker was used to earl out the skin incision using the Restorius robotic arm. Bilateral incision was made at this time. Pre templated trajectory was used and guided using the Restorius robotic navigation system for bilateral L4, L5 pedicle screw placement. This was done by using the robotic arm to guide the high-speed bur to make a cortical entry point. Next a drill was placed also using the robotic arm and guided using the navigation system drilling partially through bilateral L4, L5 pedicles. Next L4, L5 pedicle screws it was pre templated and measured was placed onto the power school bus driver/mechanic and inserted into the pedicles bilaterally. After all 4 screws were placed C-arm imaging was taken of both AP and lateral to confirm the placement. Excellent placement of the screws were confirmed and a matched precisely with the pre planned screw placement using the navigation system. MARs retractor was inserted using [employer] guidence. Globus MARS retractors was placed inside the incision and docked onto the L4 lamina. Using microsurgical technique and operating microscope, a L4 laminectomy and L4-5 facetectomy was performed using a Kerrison rongeur. Patient was found have severe lateral recess and neural foramen stenosis on the left at L4-5 level, which was fully decompressed after the laminectomy facetectomy was completed. More than 75% of the facets were removed during the process of decompression rendering L4-5 level grossly unstable and required a fusion procedure at the same time. The laminectomy and facetectomy was performed in order to decompress patient's cauda equina as well as the nerve roots exiting at the L4-5 level. The disc space at L4-5 was identified, and a total diskectomy was performed at L4-5 level. The endplates were decorticated using a rasp and shaver. The total diskectomy and decortication was performed at L4-5 level in order to to accomp carmella a L4-5 fusion. The local bone from the laminectomy and facetectomy was saved for local bone grafting. After the total diskectomy and decortication was completed, Viacel bone graft material was combined with local bone that was harvested earlier. At this time, a separate skin is incision was made over the iliac crest. A Jamshidi needle was inserted into the iliac crest through a separate skin incision. 5 cc of bone marrow aspiration was obtained through the separate skin incision using a Jamshidi needle from the iliac crest. The bone marrow aspiration was combined with local bone and the Trifecta bone grafting material. The bone grafting material was placed into the L4-5 interbody space along with a expandable cage. The cage was expanded to its maximum height using the torque limiting screwdriver. The disc preparation as well as the cage insertion were also performed under navigation guidance. After the cage was placed, AP and lateral C-arm imaging was taken to confirm placement of the cage and excellent position was confirmed. The MARS retractor was then redirected over the L2-3 L3-4 interval. Using microsurgical technique and operating microscope laminectomies at L2-3 L3-4 level was performed using Kerrison rongeur and undercutting the L2-3 L3-4 facet to further decompress the lateral recess. Globus MARS retractor was inserted and docked onto the L4-5 posterolateral gutter on the right side. Using the power drill, posterior-lateral decortication was performed at L4-5 level until bleeding cortical bone was identified. The remaining bone grafting material was placed into the L4-5 posterior lateral gutter he order to accomplish posterolateral fusion at the L4- 5 level. At this time the tulips were attached to the L4, L5 pedicle screw shanks. After measuring the length of the rods, they were inserted into the tulips of the pedicle screws and locked in place using locking caps and torque limiting screwdriver bilaterally. Total 4 caps and 2 titanium rods was used in order to complete the posterior instrumentation construct. After all the hardware was placed, and confirmed with AP and lateral C-arm imaging, the wound was then irrigated with sterile normal saline and packed with Ray-Elaine gauze for 3 min to accomplish hemostasis. After the gauze was removed the deep fascia was closed with #1 Vicryl suture. The subcutaneous layer was closed with 2-0 Vicryl. The skin was closed with skin divya. Patient tolerated the procedure well. There were no complications. Neuro monitoring system was used to monitor patient's neurologic status through out entire procedure. There was no disturbance of the neural monitoring signals throughout the case. The Operation could not have been safely performed without compromising the technical result or length of the procedure, without the assistance of a skilled surgical garment assembly supervisor. The surgical garment assembly supervisor was medically necessary for proper positioning, retraction and manipulation of instruments, proper exposure, surgical preparation, and manipulation of tissue. Complications: none Post-operative Condition: stable Disposition: PACU Plan for aftercare: Admit to inpatient hospital
[2024-03-25] MEDS: LACTATED RINGERS 1,000 ML 125 ML IV ×3 (12:37→22:10)
[2024-03-25] MEDS: ACETAMINOPHEN 325 MG TABLET 650 MG PO ×2 (13:16→20:39)
[2024-03-25] MEDS: OXYCODONE IR 5 MG TABLET PO ×2 (13:17→16:20)
--- NOTE | 2024-03-25 14:32 | PT-IP ANOTE ---
Pt arrived up to floor. Nsg reports pt is moving in bed and is currently sleeping after receiving pain medication. Will con't PT efforts.
--- NOTE | 2024-03-25 14:47 | OT.IPNOTE ---
Ot eval and treat order received. Chart reviewed and consulted nursing. Per nursing, pt is lethargic. Checked back and pt is still lethargic. Will hold today and continue to follow.
[2024-03-25] MEDS: CEFAZOLIN VIAL 3 GM in SODIUM CHLORIDE 0.9% 100 ML IV ×2 (16:17→23:10)
[2024-03-25] MEDS: ATORVASTATIN 20 MG TABLET 40 MG PO (18:08)
[2024-03-25] MEDS: METFORMIN HCL 500 MG TABLET PO (18:08)
[2024-03-25] MEDS: glipiZIDE 5 MG TABLET 25 MG PO (18:09)
[2024-03-25] MEDS: OXYCODONE IR 10 MG TABLET PO (20:39)
[2024-03-25] MEDS: METOPROLOL IR 25 MG TABLET 12.5 MG PO (20:40)
[2024-03-25] MEDS: DOCUSATE 100 MG CAPSULE PO (20:41)
[2024-03-25] MEDS: SENNOSIDES 8.6 MG TABLET 17.2 MG PO (20:41)
[2024-03-25] MEDS: OXYBUTYNIN 5 MG TABLET PO (21:10)
[2024-03-26] VITALS: BP 112/54; PULSE 82; RESP 18; TEMP 36.6; O2SAT 95
[2024-03-26] MEDS: ACETAMINOPHEN 325 MG TABLET 650 MG PO ×2 (02:41→08:44)
[2024-03-26] MEDS: polyethylene glycoL 3350 17 GM POWD.PACK PO (02:54)
[2024-03-26 03:46] VITALS: BP 116/59; PULSE 82; RESP 20; TEMP 36.5; O2SAT 95
[2024-03-26] MEDS: LEVOTHYROXINE 125 MCG TABLET PO (05:31)
[2024-03-26] MEDS: OXYCODONE IR 5 MG TABLET PO (05:53)
--- NOTE | 2024-03-26 07:31 | PM.PNPO.1 ---
Subjective Subjective Date Patient Seen: 03/26/24 Time Patient Seen: 07:31 Interval history: Patient's pain is moderate. No fever or chills. Has not yet worked physical therapy. Exam Vital Signs (past 8 hours): - 03/26/24 00:00 03/26/24 03:46 Temperature 97.8 F 97.7 F Pulse Rate 82 82 Respiratory Rate 18 20 Blood Pressure 112/54 L 116/59 L Pulse Oximetry 95 95 Oxygen Flow Rate 0 0 Oxygen Delivery Method Room Air Oxygen Flow Rate 0 Narrative Exam Narrative: 73-year-old female resting comfortably in bedside chair no apparent distress. Neurovascular status is intact bilateral lower extremities. Const General: cooperative and comfortable Nutritional Appearance: obese (BMI 45 point) Orientation: alert Resp Effort & Inspection: normal respiratory effort and able to speak in complete sentences [facility] Medical History (Updated 03/18/24 @ 13:44 by Laurie Du RN) History of COVID-19 (04/2021) DJD (degenerative joint disease) Hiatal hernia Edema Depression Morbid obesity with BMI of 45.0-49.9, adult Hypothyroidism HLD (hyperlipidemia) Essential hypertension Diabetes type 2, controlled Myasthenia gravis Surgical History (Updated 03/18/24 @ 13:22 by Laurei Du RN) Hx of bilateral cataract extraction History of carpal tunnel surgery of right wrist History of History of surgery Hx of cholecystectomy (~2004) History of hysterectomy (1998) History of total right hip replacement (2004) S/P total knee arthroplasty Family History Mother Diabetes mellitus Father Testicular cancer Social History household members: other Smoking Status: Never smoker alcohol intake: current Assessment & Plan Post-op Postoperative Procedures: Procedures Operation Date: 03/25/24 07:45 Actual Procedure Side Surgeon p L4-5 TLIF L2-3, L3-4 laminectomies - robot Krystian Smith MD Postoperative day: 1 Postoperative status: doing well and marginal pain control Postoperative plan: routine post-op care Postoperative plan narrative: Multimodal pain management Mobilize with physical therapy, limit bending, twisting, lifting Disposition likely home today or tomorrow Quality VTE Deep Vein Thrombosis/Pulmonary Embolism Present on Admission: No
[2024-03-26 08:23] VITALS: BP 109/62; PULSE 86; RESP 16; TEMP 36.8; O2SAT 95
[2024-03-26] MEDS: DOCUSATE 100 MG CAPSULE PO (08:44)
[2024-03-26] MEDS: glipiZIDE 5 MG TABLET 25 MG PO ×2 (08:44→13:26)
[2024-03-26] MEDS: OXYBUTYNIN 5 MG TABLET PO (08:45)
[2024-03-26] MEDS: CHOLECALCIFEROL (VITAMIN D3) 1,000 UNIT TABLET 1000 UNIT PO (08:45)
[2024-03-26] MEDS: LOSARTAN 50 MG TABLET PO (08:45)
[2024-03-26] MEDS: hydroCHLOROthiazide 25 MG TABLET PO (08:45)
[2024-03-26] MEDS: METFORMIN HCL 500 MG TABLET PO (08:45)
--- NOTE | 2024-03-26 09:10 | PT.IIE ---
Current Diagnoses Spondylolisthesis, lumbar region (03/25/24) Spinal stenosis, lumbar region with neurogenic claudication (03/25/24) Surgery Performed Operation Date: 03/25/24 07:45 Actual Procedures p L4-5 TLIF L2-3, L3-4 laminectomies - robot - Krystian Smith MD Surgical History (Last Reviewed 03/26/24 @ 11:13 by Sergio Green PA-C) History of History of carpal tunnel surgery of right wrist History of hysterectomy (1998) History of surgery History of total right hip replacement (2004) Hx of bilateral cataract extraction Hx of cholecystectomy (~2004) S/P total knee arthroplasty Medical History (Last Reviewed 03/26/24 @ 11:13 by Sergio Green PA-C) Depression Diabetes type 2, controlled DJD (degenerative joint disease) Edema Essential hypertension Hiatal hernia History of COVID-19 (04/2021) HLD (hyperlipidemia) Hypothyroidism Morbid obesity with BMI of 45.0-49.9, adult Myasthenia gravis Physical Therapy Inpatient Evaluation/Re-Eval M1 PT/OT-IP Prior Functional Status Start: 03/25/24 14:32 Freq: NEEDED Status: Active Protocol: Document 03/26/24 09:10 AB (Rec: 03/26/24 11:56 AB [id number]) Medical Review Prior Functional Status Medical History Reviewed Yes Communication able to make needs known Mobility and Gait pt stated that she was independent with all mobilities and ambulation without AD Social History Household Members family Living Arrangements House Number of Floors (Floors) One Floor Number of Stairs To Enter/Railing? 10 steps B rails to enter the house Home Environment Standard Height Toilet,Walk in Shower Home Equipment Front Wheel Walker,Straight Cane,Shower Seat with Backrest ,Hand Held Shower,Grab Bars Near Toilet Additional Social History Comment pt lives with her sister who can assist her and also has her daughter that lives close by that can also assist her pt sleeps on a recliner M2 PT-IP Current Condition Start: 03/25/24 14:32 Freq: NEEDED Status: Active Protocol: Document 03/26/24 09:10 AB (Rec: 03/26/24 11:56 AB [id number]) Physical Therapy Current Condition Current Condition Evaluation Date 03/26/24 Treatment Diagnosis s/p L4-5 TLIF; L2-5 lami; difficulty in walking Onset Date 03/25/24 M3 PT-IP Subjective Start: 03/25/24 14:32 Freq: NEEDED Status: Active Protocol: Document 03/26/24 09:10 AB (Rec: 03/26/24 11:56 AB [id number]) Subjective Physical Therapy Visit Type Type Initial Evaluation Visit Start Time 09:10 Visit Stop Time 10:00 Number of PATTERN CHART WRITER Visits 0 Physical Therapy Visit Comments Patient Comments agreeable to do PT Therapy Pain Assessment Pain When Pain Assessed At Rest Pain Present Pain Present Pain Reported Location low back Intensity 8 Scale Used Numeric (0 - 10) Pain Behaviors Guarding Pain Management Techniques Apply Cold,Distraction, Modification of Treatment,Re- positioning,Timing of Activity with Medications M4 PT-IP Mobility and Gait Start: 03/25/24 14:32 Freq: NEEDED Status: Active Protocol: Document 03/26/24 09:10 AB (Rec: 03/26/24 11:56 [id number]) PT-Transfer Assessment Sit to and From Stand Sit to and from Stand Contact Guard Assistance,1 Person Assistance,Use of Upper Extremities Equipment Transfer Assistive Device Gait Belt,Front Wheeled Walker Orthotic/Prosthetic Devices or Brace: No Comments Mobility Comments pt sitting on the chair. obtained PLOF and home set up from pt. post-op folder provided and reviewed with pt. pt stated that she sleeps on a recliner and does not need to do log roll bed mobility. pt completed sit to stand CGA and ambulated in room ~ 15 ft using FWW. pt sat on EOB and rested. sit to stand from EOB CGA and ambulated back to chair using FWW CGA. pt rested. pt agreed to do stairs . pt ambulated from chair to w /c ~ 20 ft CGA to min A with turning. stair climbing training. pt educated on how to do stairs. pt completed up/down steps using B rails CGA to min A. Assisted pt back to her room pt ambulated from w/c to chair using FWW CGA. positioned pt on the chair. call light and table placed within reach. pt will call her daughter for a caregiver training this afternoon at 1 pm. Gait Assessment Gait Gait Assistance Required: Contact Guard Assist,Minimum Assistance Distance (Feet) 20 Able to Maintain Weight Bearing Status Yes During Gait Assistive Devices Assistive Device Gait Belt,Front Wheeled Walker Orthotic/Prosthetic Devices or Brace: No Gait Deviations General Gait Pattern Decreased Stride Length, Decreased Feet Clearance,Step- to Gait Factors Limiting Gait Function Factors Limiting Gait Function Decreased Activity Tolerance, Decreased Strength,Limited Range of Motion,Pain,Poor Balance,Poor Safety Awareness Stair Climbing Assessment Evaluation Level of Assist On Stairs Contact Guard Assistance, Minimal Assistance Devices Stair Climbing Assistive Devices Left Railing,Right Railing Technique/Endurance Stair Climbing Direction Ascend and Descend Stair Climbing Technique Step to Step Number of Steps Climbed 3 Query Text: Stair Climbing Set # Repetitions (reps) 1 PT-Balance Assessment Sitting Balance and Reactions Static Sitting Balance Ability Normal Dynamic Sitting Balance Ability Good Standing Balance and Reactions Static Standing Balance Ability Fair Dynamic Standing Balance Ability Fair Device Used FWW M5 PT-IP Objective Assessments Start: 03/25/24 14:32 Freq: NEEDED Status: Active Protocol: Document 03/26/24 09:10 AB (Rec: 03/26/24 11:56 AB [id number]) Orientation Orientation/Cognition Level of Alertness Alert Orientation Name,Situation Language Function Ability No Deficits Noted Safety Awareness Decreased Safety Awareness Memory Description No Deficits Noted Gross Range of Motion Lower Extremity ROM Assessment Within Functional Limits Strength Lower Extremity Strength Assessment Right Impaired Hip 3-/5 Knee 3+/5 Sensation Assessment Sensation Gross Sensation WNL Muscle Tone Muscle Tone WNL Yes M6 PT-IP Treatment Start: 03/25/24 14:32 Freq: NEEDED Status: Active Protocol: Document 03/26/24 09:10 AB (Rec: 03/26/24 11:56 AB [id number]) Physical Therapy Treatment Education Education Provided Precautions,Weight Bearing Status,Post-Op Packet,Safety M7 PT-IP Assessment and Plan Start: 03/25/24 14:32 Freq: NEEDED Status: Active Protocol: Document 03/26/24 09:10 AB (Rec: 03/26/24 11:56 AB [id number]) PT Summary Assessment and Plan Potential Rehabilitation Potential Good Status of Condition at Evaluation Stable Summary Impairments Pain,ROM,Strength,Balance, Coordination,Sensation,Tone, Cognition,Bed Mobility, Transfers,Gait,Activity Tolerance Assessment Summary pt is a 73 y/o F s/p L4-5 TLIF ; L2-3, 3-4, 4-5 laminectomy POD 1. pt requiring CGA to min A with mobility using FWW. pt plans to go home and will have her sister and/or daughter to assist her at home . caregiver training set up at ~ 1pm this afternoon. will continue to assess. Goals Transfer Goal Independent,Front Wheeled Walker Gait Goal Independent,Front Wheel Walker Gait Distance 150 Other Goals up/down 10 steps B rails SBA Days to Meet Goals 5 Frequency of Treatment Frequency Of Treatment Twice a Day Treatment Plan Physical Therapy Treatment Plan Bed Mobility Training,Transfer Training,Gait Training, Therapeutic Exercise,Balance Retraining,Post Op Education, Discharge Planning,Hot or Cold Pack,Neuromuscular Re-ed, Coordination Retraining,Manual Therapy Precautions Lumbar Precautions Log Roll,No Twisting,Limit Bending,Lifting Restriction of 10 lbs,Gait Belt above Incisional Area Recommendations To Nursing Amount of Assist Needed 1 Person Assist Discharge Recommendations PT Discharge Recommendations Home with Assistance,Home Health Transportation Needs at Discharge Private Vehicle
[2024-03-26] MEDS: OXYCODONE IR 10 MG TABLET PO ×2 (09:21→13:27)
--- NOTE | 2024-03-26 11:11 | PM.DS.1 ---
History of Present Illness History of Present Illness Date Patient Seen: 03/26/24 Time Patient Seen: 11:11 Chief complaint: Back pain Narrative: See progress note Discharge Providers Provider Date of admission: 03/25/24 06:09 Discharge Date: 03/26/24 Primary care physician: Hector Duarte MD Consults: 03/25/24 12:16 Consult to Occupational Therapy Evaluate & Treat Comment: Physician Instructions: Evaluate and treat Consult to Physical Therapy Evaluate & Treat Comment: Physician Instructions: Evaluate and Treat Discharge provider: Sergio Green PA-C Summary Hospital Course Discharge Diagnosis: 1. L2-3, L3-4, L4-5 spinal stenosis with neurogenic claudication 2. Lumbar foramen stenosis Hospital Course: 1. L4-5 Postero-lateral and posterior interbody fusion 2. L4-5 interbody cage placement. 3. L4-5 decompressive laminectomy with bilateral facetecomies 4. L4-5 Posterior non-segmental instrumentation 5. L2-3, L3-4 laminectomies with bilateral partial facetecomies 6. [place] of bone marrow from iliac crest 7. Utilization of microsurgical technique and operating microscope 8. Utilization of robotic assisted navigation Same procedure as scheduled: Yes Indications: Patient has been having chronic back pain and worsening lumbar radiculopathy and symptoms of neurogenic claudication. Patient has L2-3 L3-4 L4-5 spinal stenosis with severe foraminal stenosis at L4-5 on the left correlating with her symptoms. Patient failed multiple conservative management with worsening pain weakness and numbness in her lower extremity. Patient has been having difficulty performing activity of daily living. After discussing risks benefits of treatment options, patient elected proceed with surgery. Surgeon: Krystian Smith Airline Transport Pilot: Yodit Atwood Click Yes if Unassisted: No Anesthesia Type: General Operative Notes Closure Type: primary Specimen(s): none sent Prosthetic devices, grafts, tissues, transplants, or devices: Globus CREO MIS screws, Rise cage Applied: catheter Estimated Blood Loss (mL): 150 Blood products transfused: none Patient admitted to the hospital for the above-mentioned procedure. Patient consented to the same. Patient underwent lumbar fusion March 25, 2024. Patient back in her room recovering well as in stable condition. Patient has been mobilizing with physical therapy. She will limit bending, twisting, lifting. Multimodal pain management. Patient has assistance at home. Patient will be discharged home this afternoon after physical therapy if safe for home environment. Exam Vital Signs (past 8 hours): - 03/26/24 03:46 03/26/24 08:23 Temperature 97.7 F 98.2 F Pulse Rate 82 86 Respiratory Rate 20 16 Blood Pressure 116/59 L 109/62 Pulse Oximetry 95 95 Oxygen Flow Rate 0 0 Oxygen Delivery Method Room Air Oxygen Flow Rate 0 Narrative Exam Narrative: See progress note PFSH Medical History History of COVID-19 (04/2021) DJD (degenerative joint disease) Hiatal hernia Edema Depression Morbid obesity with BMI of 45.0-49.9, adult Hypothyroidism HLD (hyperlipidemia) Essential hypertension Diabetes type 2, controlled Myasthenia gravis Surgical History Hx of bilateral cataract extraction History of carpal tunnel surgery of right wrist History of History of surgery Hx of cholecystectomy (~2004) History of hysterectomy (1998) History of total right hip replacement (2004) S/P total knee arthroplasty Family History Mother Diabetes mellitus Father Testicular cancer Social History household members: other Smoking Status: Never smoker alcohol intake: current Discharge Assessment & Plan Assessment and Plan Assessment: Patient progressing as expected Plan of Treatment: Limit bending, twisting, lifting Keep dressing clean and dry Multimodal pain management Discharge home this afternoon after physical therapy if safe for home environment Discharge Plan Discharge Plan Patient Disposition: Home Discharge orders & Medications Prescriptions: New acetaminophen 325 mg Tablet 650 mg PO Q6H PRN (Reason: Fever/Mild Pain (1-3)) Qty: 60 0RF docusate sodium 100 mg Capsule 100 mg PO BID Qty: 10 0RF oxycodone 5 mg Tablet 5 mg PO Q3H PRN (Reason: Pain, Moderate (4-6)) Qty: 40 0RF Continued levothyroxine [Synthroid] 125 MCG tablet 125 mcg PO QDAY Qty: 0 glipizide 5 MG tablet 5 tab PO TIDAC Qty: 0 venlafaxine [Effexor XR] 150 MG capsule,extended release 24hr 150 mg PO Q OTHER DAY Qty: 0 oxybutynin chloride 5 MG tablet 5 mg PO BID Qty: 0 vitamin B complex [B Complex-Vitamin B12] 1 EACH tablet 1 tab PO QDAY Qty: 0 cholecalciferol (vitamin D3) [Vitamin D3] 1,000 UNIT tablet 1,000 unit PO QDAY Qty: 0 lecithin, soy 400 MG capsule 400 mg PO QDAY Qty: 0 potassium chloride 8 mEq Capsule, Extended Release 8 meq PO DAILY hydrochlorothiazide 25 mg Tablet 25 mg PO DAILY azathioprine 75 mg Tablet 150 mg PO DAILY metoprolol tartrate 25 mg Tablet 12.5 mg PO BEDTIME pyridostigmine bromide 30 mg Tablet 15 mg PO BID losartan 50 mg Tablet 50 mg PO BID atorvastatin 40 mg Tablet 40 mg PO QPM metformin 500 mg Tablet 500 mg PO BID Follow up/Referrals: Hector Duarte MD [Primary Care Provider] - Krystian Smith MD [Physician] - 04/12/24 10:40 am (Follow up w/ Yodit Atwood PA-C, at [facility] office in [place].) Diet/Activity/Treatments Diet: Diet as Tolerated Activity: No deep bending or twisting at the waist. No lifting more than 10 pounds. Cold/Heat Therapy: Heating pad to low back as needed for pain. Skin/Wound/Dressing Care Report to your healthcare provider any signs of infection, such as:: chills, fever, night sweats, unusual drainage and unusual redness Dressing: May shower. Keep dressing as dry as possible. If dressing becomes wet or dirty, may remove and replace with clean, dry gauze. Visit Report/Discharge Packet Instructions: DI for Prescription Opioid Use, DI for Transforaminal Lumbar Interbody Fusion Stand Alone Forms: Patient Portal/API, Stroke Signs & Symptoms, Surgery Discharge Discharge Data Primary Care Provider: Hector Duarte Quality VTE Deep Vein Thrombosis/Pulmonary Embolism Present on Admission: No
--- NOTE | 2024-03-26 11:27 | OT.IP.EVAL ---
Current Diagnoses Spondylolisthesis, lumbar region (03/25/24) Spinal stenosis, lumbar region with neurogenic claudication (03/25/24) Surgery Performed Operation Date: 03/25/24 07:45 Actual Procedures p L4-5 TLIF L2-3, L3-4 laminectomies - robot - Krystian Smith MD Past Medical History (Last Reviewed 03/26/24 @ 11:13 by Sergio Green PA-C) Depression Diabetes type 2, controlled DJD (degenerative joint disease) Edema Essential hypertension Hiatal hernia History of COVID-19 (04/2021) HLD (hyperlipidemia) Hypothyroidism Morbid obesity with BMI of 45.0-49.9, adult Myasthenia gravis Surgical History (Last Reviewed 03/26/24 @ 11:13 by Sergio Green PA-C) History of History of carpal tunnel surgery of right wrist History of hysterectomy (1998) History of surgery History of total right hip replacement (2004) Hx of bilateral cataract extraction Hx of cholecystectomy (~2004) S/P total knee arthroplasty Occupational Therapy Inpatient Evaluation/Re-Eval M1 PT/OT-IP Prior Functional Status Start: 03/25/24 14:32 Freq: NEEDED Status: Active Protocol: Document 03/26/24 12:32 [facility] (Rec: 03/26/24 12:43 [facility] [id number]) Medical Review Prior Functional Status Medical History Reviewed Yes Communication able to make needs known Mobility and Gait pt stated that she was independent with all mobilities and ambulation without AD Activities of Daily Living and IADL's Pt states had a hard time to do her socks, otherwise able to do all her ADl and IADL needs. Social History Household Members family Living Arrangements House Number of Floors (Floors) One Floor Number of Stairs To Enter/Railing? 10 steps B rails to enter the house Home Environment Standard Height Toilet,Walk in Shower Home Equipment Front Wheel Walker,Straight Cane,Shower Seat with Backrest ,Hand Held Shower,Grab Bars Near Toilet Additional Social History Comment pt lives with her sister who can assist her and also has her daughter that lives close by that can also assist her pt sleeps on a recliner M2 OT-IP Current Condition Start: 03/26/24 12:31 Freq: Status: Active Protocol: Document 03/26/24 12:32 [facility] (Rec: 03/26/24 12:43 [facility] [id number]) Occupational Therapy Current Condition Current Condition Evaluation Date 03/26/24 Treatment Diagnosis S/P L4-5 TLIF, L2-5 lami Diagnosis Onset Date 03/25/24 Post Operative Precautions Lumbar Precautions Log Roll,No Twisting,Limit Bending,Lifting Restriction of 10 lbs,Gait Belt above Incisional Area M3 OT- IP Subjective and Pain Start: 03/26/24 12:31 Freq: Status: Active Protocol: Document 03/26/24 12:32 [facility] (Rec: 03/26/24 12:43 [facility] [id number]) OT- Subjective Occupational Therapy Visit Type Type Initial Evaluation Visit Start Time 11:27 Visit Stop Time 11:59 Occupational Therapy Visit Comments Patient Comments Pt agree to get up and use the bathroom. Patient/Caregiver Goals To go home. OT Pain Assessment Pain When Pain Assessed During Mobility Pain Present Pain Present Pain Reported Location low back Intensity 5 Scale Used Numeric (0 - 10) M4 OT- IP ADL's Start: 03/26/24 12:31 Freq: Status: Active Protocol: Document 03/26/24 12:32 [facility] (Rec: 03/26/24 12:43 [facility] [id number]) OT [id number] General Evaluation Self-Feeding Ability Independent OT ADL-Grooming General Evaluation Grooming Ability Standby Assistance Areas Needing Assistance Retrieving/Set-up of Grooming Items Comments OT Grooming Comments Leonel to do while standing at the sink with FWW. OT ADL-Oral Care General Eval Oral Care Ability Independent OT ADL-Dressing Comments OT Dressing Comments Pt states is barefooted or will get assist for socks. Educated on LB dressing equipment if needed. OT ADL-Toileting General Evaluation Toileting Ability Standby Assistance Comments OT Toileting Comments Educated to pt that is will be easier to stand and wipe. Suggested obtaining a toilet paper aid if needed. Pt states to just have her sister assist. OT ADL-Bathing Comments OT Bathing Comments Educated pt to cover the dressing for showering needs. M5 OT- IP IADL's Start: 03/26/24 12:31 Freq: Status: Active Protocol: Document 03/26/24 12:32 [facility] (Rec: 03/26/24 12:43 [facility] [id number]) OT-Instrumental Activities of Daily Living Deficits IADL Deficits Identified Deficits Home Safety Awareness Awareness of Need for Assistance at Home Good Awareness Ability to Problem Solve Emergency Able to Problem Solve Situations Home Safety Comments Pt's sister or daughter to assist. Medication Management Medication Management No Deficits Identified Money Management Money Management No Deficits Identified Meal Preparation Meal Preparation Caregiver Provides Assist Hose Coupling Joiner Hose Coupling Joiner Caregiver Provides Assist M6 OT- IP Functional Cognition Start: 03/26/24 12:31 Freq: Status: Active Protocol: Document 03/26/24 12:32 [facility] (Rec: 03/26/24 12:43 [facility] [id number]) Cognitive Factors Limiting Selfcare Function Cognitive Ability Level of Alertness Alert Patient Orientation Name,Age,Birthday,Month,Date, Year,Day of Week,Place, Situation Attention Span Ability Capable of Focused Attention, Capable of Sustained Attention Ability to Follow Commands Able to Follow One Step Commands Cognitive Comments Cognitive Assessment Comments Pt able to follow commands for ADL and mobility and good safety for her back precautions. OT- Vision and Hearing OT- Hearing Assessment OT- Hearing Assessment WFL OT- Vision Assessment Visual Acuity Glasses All The Time Visual Attentiveness WFL Occular Pursuits WFL M7 OT- IP Mobility and Balance Start: 03/26/24 12:31 Freq: Status: Active Protocol: Document 03/26/24 12:32 [facility] (Rec: 03/26/24 12:43 [facility] [id number]) OT-Transfer Assessment Sit to and From Stand Sit to and from Stand Standby Assistance Transfers Transfer Ability Standby Assistance Technique Transfer Destination Chair Transfer Technique Stand Step Pivot Devices Transfer Assistive Devices Gait Belt,Front Wheeled Walker Comments Mobility Comments Pt to be sleeping in her recliner at home. SBA at this time with FWW. OT- Balance Assessment Sitting Balance and Reactions Static Sitting Balance Ability Normal Dynamic Sitting Balance Ability Good Standing Balance and Reactions Static Standing Balance Ability Good Dynamic Standing Balance Ability Fair M8 OT- IP Objective Assessments Start: 03/26/24 12:31 Freq: Status: Active Protocol: Document 03/26/24 12:32 [facility] (Rec: 03/26/24 12:43 [facility] [id number]) OT Gross Range of Motion Upper Extremity Range of Motion Assessment Within Functional Limits OT Strength Upper Extremity Strength Assessment Within Functional Limits M9 OT- IP Assessment and Plan Start: 03/26/24 12:31 Freq: Status: Active Protocol: Document 03/26/24 12:32 [facility] (Rec: 03/26/24 12:43 [facility] [id number]) OT Summary Assessment and Plan Potential Rehabilitation Potential Excellent Analytic Complexity at Evaluation Low Summary OT Impairments Pain,Strength,Balance, Functional Mobility,Dressing, Bathing,Toilet Transfers, Shower Transfers Progress Towards Goals Progressing Toward Goals Assessment Summary Pt low complexity and main barriers are steps, and will needs assist for ADl's especially for bathing and toileting needs. Pt to go home with her family to assist when medically stable. Goals Dressing Goal Minimal Assistance,Rn Peritoneal Dialysis Toileting Goal Independent Bathing Goal Standby Assistance Toilet Transfer Goal Independent Shower Transfer Goal Standby Assistance Days to Meet Goals 5 Frequency of Treatment Frequency Of Treatment Once a Day Treatment Plan OT Treatment Plan ADL Training,Functional Mobility,Patient/Family Education,Discharge Planning Discharge Recommendations OT Discharge Recommendations Home with 10/04 Assist Available Transportation Needs at Discharge Private Vehicle
--- NOTE | 2024-03-26 13:05 | PT.IPTN ---
Current Diagnoses Spondylolisthesis, lumbar region (03/25/24) Spinal stenosis, lumbar region with neurogenic claudication (03/25/24) Surgery Performed Operation Date: 03/25/24 07:45 Actual Procedures p L4-5 TLIF L2-3, L3-4 laminectomies - timothy - Krystian Smith MD Physical Therapy Treatment Note M2 PT-IP Current Condition Start: 03/25/24 14:32 Freq: NEEDED Status: Active Protocol: Document 03/26/24 09:10 AB (Rec: 03/26/24 11:56 AB [id number]) Physical Therapy Current Condition Current Condition Evaluation Date 03/26/24 Treatment Diagnosis s/p L4-5 TLIF; L2-5 lami; difficulty in walking Onset Date 03/25/24 M3 PT-IP Subjective Start: 03/25/24 14:32 Freq: NEEDED Status: Active Protocol: Document 03/26/24 13:05 AB (Rec: 03/26/24 15:17 AB [id number]) Subjective Physical Therapy Visit Type Type Treatment Note Visit Start Time 13:05 Visit Stop Time 13:30 Number of ECHOMETER ENGINEER Visits 0 Physical Therapy Visit Comments Patient Comments agreeable to do PT Therapy Pain Assessment Pain When Pain Assessed At Rest Location low back Intensity 4 Scale Used Numeric (0 - 10) Pain Management Techniques Apply Cold,Distraction, Modification of Treatment,Re- positioning,Timing of Activity with Medications M4 PT-IP Mobility and Gait Start: 03/25/24 14:32 Freq: NEEDED Status: Active Protocol: Document 03/26/24 13:05 AB (Rec: 03/26/24 15:17 AB [id number]) PT-Transfer Assessment Sit to and From Stand Sit to and from Stand Contact Guard Assistance,1 Person Assistance,Use of Upper Extremities Equipment Transfer Assistive Device Gait Belt,Front Wheeled Walker Orthotic/Prosthetic Devices or Brace: No Comments Mobility Comments pt sitting on the chair. pt's daughter in room for caregiver training. educated daughter regarding pt's back precautions. educated daughter regarding use of safety belt and how to assist pt. daughter was able to put safety belt on pt and assisted pt with sit to stand. pt ambulated in the hallway using FWW ~ 50 ft CGA with daughter assisting. pt completed up/down 3 steps using B rails with daughter assisting CGA. pt refused to do more stairs. pt ambulated towards the room using FWW ~ 30 ft CGA. assisted pt back to her room. ambulated from w/c to chair using FWW CGA. positioned pt on the chair and left with NAC . pt and daughter without further concerns. Gait Assessment Gait Gait Assistance Required: Contact Guard Assist Distance (Feet) 50 Able to Maintain Weight Bearing Status Yes During Gait Assistive Devices Assistive Device Gait Belt,Front Wheeled Walker Orthotic/Prosthetic Devices or Brace: No Gait Deviations General Gait Pattern Ataxic,Decreased Stride Length ,Decreased Feet Clearance Factors Limiting Gait Function Factors Limiting Gait Function Decreased Activity Tolerance, Decreased Strength,Difficulty Following Directions,Limited Range of Motion,Pain,Poor Balance Stair Climbing Assessment Devices Stair Climbing Assistive Devices Left Railing,Right Railing Technique/Endurance Stair Climbing Direction Ascend and Descend Stair Climbing Technique Step to Step Number of Steps Climbed 3 Stair Climbing Set # Repetitions (reps) 1 M5 PT-IP Objective Assessments Start: 03/25/24 14:32 Freq: NEEDED Status: Active Protocol: Document 03/26/24 09:10 AB (Rec: 03/26/24 11:56 AB [id number]) Orientation Orientation/Cognition Level of Alertness Alert Orientation Name,Situation Language Function Ability No Deficits Noted Safety Awareness Decreased Safety Awareness Memory Description No Deficits Noted Gross Range of Motion Lower Extremity ROM Assessment Within Functional Limits Strength Lower Extremity Strength Assessment Right Impaired Hip 3-/5 Knee 3+/5 Sensation Assessment Sensation Gross Sensation WNL Muscle Tone Muscle Tone WNL Yes M6 PT-IP Treatment Start: 03/25/24 14:32 Freq: NEEDED Status: Active Protocol: Document 03/26/24 13:05 AB (Rec: 03/26/24 15:17 AB [id number]) Physical Therapy Treatment Education Education Provided Precautions,Safety M7 PT-IP Assessment and Plan Start: 03/25/24 14:32 Freq: NEEDED Status: Active Protocol: Document 03/26/24 13:05 AB (Rec: 03/26/24 15:17 AB [id number]) PT Summary Assessment and Plan Potential Rehabilitation Potential Fair Summary Impairments Pain,ROM,Strength,Balance, Coordination,Sensation,Tone, Cognition,Bed Mobility, Transfers,Gait,Activity Tolerance Progress Towards Goals Slow Progress due to Pain,Slow Progress due to Medical Issues Assessment Summary pt requiring CGA with mobility . caregiver training conducted and daughter was able to assist pt safely. pt plans to go home and will have her sister or daugther assist her at home. pt may go home when medically stable. Goals Transfer Goal Independent,Front Wheeled Walker Gait Goal Independent,Front Wheel Walker Gait Distance 150 Other Goals up/down 10 steps B rails SBA Days to Meet Goals 5 Frequency of Treatment Frequency Of Treatment Twice a Day Treatment Plan Physical Therapy Treatment Plan Bed Mobility Training,Transfer Training,Gait Training, Therapeutic Exercise,Balance Retraining,Post Op Education, Discharge Planning,Hot or Cold Pack,Neuromuscular Re-ed, Coordination Retraining,Manual Therapy Precautions Lumbar Precautions Log Roll,No Twisting,Limit Bending,Lifting Restriction of 10 lbs,Gait Belt above Incisional Area Recommendations To Nursing Amount of Assist Needed 1 Person Assist Discharge Recommendations PT Discharge Recommendations Home with Assistance,Home Health Transportation Needs at Discharge Private Vehicle
--- NOTE | 2024-03-26 13:06 | CM.DANOTE ---
DCP Assessment note Pt is a 73yo F here following TLIF with Dr. Smith on 03.25.24. PCP Dr. Duarte Payer medicare and [facility] SPICE CLEANER reviewed EMR. Per PT, pt able to dc home with family after CG training in afternoon. Per ortho, cleared to dc home today. SPICE CLEANER met with pt in room. introduced self and role. Pt lives in [place] with sister Katey ([phone]) and dtr Marga ([phone]) lives down the road. Pt has a walker, grab bars, and walk in shower at home. SPICE CLEANER answered questions about HH- that Dr. Smith does not order it after TLIFs because he wants his pt's to rest and will decide need after f.u appointment. Pt expressed understanding. Pt denies any CM needs at this time, and that dtr on way to transport her home. P: dc today home with sister and dtr. No identified barriers to safe return home. CM team will follow as needed MINGO Huang Discharge Planning/Care Management CM Discharge Assessment Start: 03/26/24 12:58 Freq: Status: Active Protocol: Document 03/26/24 12:58 SL (Rec: 03/26/24 13:06 SL [id number]) Discharge Planning Assessment Assigned Farmworker Bulbs MINGO Tomas DPOA/Assigned Designee Name sister Del Toro Contact Information [phone] Advance Directives? Yes Advance Directives on File Yes History Provided By Patient,Medical Record Prior Living Arrangements House Household Members family Type of transporation used prior to Drives own vehicle admit Independent with ADL's Yes Is patient alert and oriented? Yes DME Already Rented / Owned Bath Bench,FWW / Walker,Other Discharge Plan Home Transportation Arrangement dtr in POV Referrals Initiated None needed Whiteboard Updated in Patient Room with Yes name and ext. # of Farmworker Bulbs Review Status In Process Please Provide Date Initial DC 03/26/24 Assessment Was Performed Next Review Type Continued Stay Review Pre-Anesthesia Assessment Start: 03/18/24 12:48 Freq: Status: Active Protocol: Document 03/18/24 12:48 CAB (Rec: 03/18/24 13:44 CAB [id number]) Pre-Anesthesia Assessment Preferred Name Ela Patient Information Reviewed Via Phone Assessment Assessment Completed With Patient Diagnostic Results BMP/CMP,CBC,EKG Comment Outside labs scanned, EKG @ [facility] 02/14/24 Primary Care Provider Hector Duarte Seen Specialist in Last 12 Months Yes Specialist Seen Food And Beverage Attendant,Orthopedist, Other Primary Language Marshallese Preferred Language Marshallese Merchandise Presentation Associate Required No Height 165.1 cm Weight 124.738 kg Body Mass Index (BMI) 45.7 Hearing Ability Normal Visual Assist Glasses Dentition Type Teeth, Natural Present,Teeth, Missing Barriers to Learning Age related Hx Anesthesia Reactions No Hx Family Anesthesia Reaction No Hx Malignant Hyperthermia No Hx Blood Transfusions No Anesthesia Review Requested No Laryngologist No alcohol intake current alcohol intake frequency holidays/special occasions only Smoking Status Never smoker Substance Use Type does not use Pain Present Pain Reported Musculoskeletal Symptoms Abnormal Gait,Back Pain, Difficulty Walking,Radiating Pain into Limb History of Falling (Recent or History of Yes ) Patient is completely paralyzed or No completely immobile Mental Status Oriented to own ability Is patient on oxygen? No Does patient have MERRITT/SOB Yes: With distances Hx Sleep Apnea No Currently Taking a Beta Luz Maria No Can You Climb a Flight of Stairs Without No SOB Hx Chest Pain No Hx SOB Yes: With distances Hx Syncope or Dizziness No Anti-Coagulant Therapy No Has a Director Medical Safety No Cardiac Testing No Hx Pacemaker/ICD No Pacemaker Rep Required? No Cardiac Clearance Received No Diet Type At Home Regular Dysphagia No Gastrointestinal Symptoms None Bladder Pattern Incontinent,Urgency Urinary Catheter Present No Hx Urinary Self Catheterization No Diabetes Yes HgbA1C 6.6 Date 02/06/24 Patient No Lactating No Hx Drug Resistant Organism No Presence of External or Internal Medical Yes Devices Have you had any close contact with No someone diagnosed with COVID-19? Received a COVID vaccine? Yes Marital Status / Lives With other Current Living Arrangements House Comment Lives with sister Number of Floors (Floors) One Floor Support System Child/Children,Sibling(s) Comment Lives with sister, daughter is closeby Does the Patient Have Assistance After Yes Surgery Patient Discharge Plan Description Return Home Comment Pt not advised on length of stay per surgeon Feels Safe in Current Environment Yes Been Physically Hurt or Threatened By a No Person in Current Environment Do you have thoughts of harming yourself None or others? Are you currently considering suicide? No Do you have a plan to hurt yourself or No Plan others? Do You Have Any Spiritual Beliefs That No May Affect Your HC Choices? Do You Have Any Cultural Practices That No May Affect Your HC Choices? Comment Golden Who Can We Speak to About Patient's Care Family, friends Identifying Code for Release of Patient Declines to issue Information Health Care Proxy/Next of Kin Marga (daughter) Health Care Proxy Emergency Contact Name Lyn (sister) Emergency Contact Advance Directives? Yes Advance Directives on File Yes Power of Supervisor Rides No PAC Instructions Diabetes instructions,Durable medical equipment,Medications to take/avoid,Nasal antibiotic ,No ETOH/petroleum product on skin DOS,NPO,Pre-surgical wash ,Sensory aids,Sturdy shoes/ comfortable clothes,Do not bring valuables and remove jewelry
--- NOTE | 2024-03-26 17:10 | PC.NURSE ---
Discharge: Pt feels ready to d/c to home. Seen by PA and given d/c instructions. Seen by PT/OT and given instructions and is safe to go home. [place] out this am, vd 100mls and then voided with physical therapy. Pt feels she is emptying her bladder. Dressing changed to cover site. [place] intact. No drainage. Family snapped photo for pt. Family was then shown how to change dressing if needed. Given 1 dressing in case needed. Tolerates diet w/out problems. Reports po pain meds are effective. Reviewed d/c packet. [facility] Questions answered. Pt d/c to home via auto w/family.
== END 2024-03-26 14:20 | disposition home or self-care (01) | DRG 455 ==
PROVIDERS: Admitting Provider Orthopaedic Surgery Orthopaedic Surgery of the Spine; PCP Internal Medicine; Referring Provider Orthopaedic Surgery Orthopaedic Surgery of the Spine; Visit Provider Orthopaedic Surgery Orthopaedic Surgery of the Spine
PROC: 0SG00AJ Fusion of Lumbar Vertebral Joint with Interbody Fusion Device, Posterior Approach, Anterior Column, Open Approach (ICD-10-PCS; principal; 2024-03-25 07:45)
DX: M48.062 Spinal stenosis, lumbar region with neurogenic claudication (principal); M43.16 Spondylolisthesis, lumbar region; E03.9 Hypothyroidism, unspecified; E11.9 Type 2 diabetes mellitus without complications; Z79.84 Long term (current) use of oral hypoglycemic drugs; I10 Essential (primary) hypertension; E78.5 Hyperlipidemia, unspecified; F32.A Depression, unspecified
CPT/HCPCS: 72100; 76000; 97116; 97161; 97165; 97530; 97535; C1713; C9290; J0171; J0330; J0690; J1100; J1170; J2250; J2405; J2704; J3010